=== PATIENT | female | born 1960 | race Caucasian/White ===

== ENCOUNTER 2021-10-13 12:55 | Outpatient (CLI) | payer BC, SELFPAY ==
--- NOTE | 2021-10-13 13:00 | CRLHL7_ITS ---
For Patients: As a result of the Century Cures Act, medical imaging exams and procedure reports are released immediately into your electronic medical record. You may view this report before your referring provider. If you have questions, please contact your health care provider. DXA BONE MINERAL DENSITY STUDY Current height (in): 63. Weight (lb): 140. Menopause age: 48. Ethnicity: White. 1. Have you had a previous hip or vertebral fracture? No. 2. Have you had any fractures during your adult life which did not result from significant trauma (e.g., auto accident)? No. 3. Did either of your parents have a hip fracture? Yes. 4. Do you smoke? Yes. 5. Have you ever taken Glucocorticoids? No. 6. Do you have rheumatoid arthritis? No. 7. Do you have secondary osteoporosis? No. 8. Do you drink 3 or more alcoholic drinks per day? No. 9. Are you being treated for osteoporosis? No. 10. Have you ever taken any of the following medications: Actonel, Evista, Fosamax, Miacalcin, Reclast, Boniva, Forteo, HRT (i.e. estrogen/hormone therapy), Protelos, Prolia, Vitamin D, Calcium, other ??? please specify. ANSWER: Yes, vitamin D, calcium. 11. Do you have any of the following medical conditions: Anorexia or bulimia, asthma or emphysema, end stage renal disease, hyperparathyroidism, any seizure disorders, cancer, inflammatory bowel diseases, hysterectomy, other ??? please specify. ANSWER: Yes, cancer. 12. What was your maximum height (inches)? 64. 13. Do you perform weight bearing exercise regularly? No. 14. Do you regularly consume dairy products? Yes. 15. Do you drink caffeinated beverages? Yes. 16. At what age did your period start? 14. 17. Are you premenopausal? No. 18. How many full term pregnancies have you had? 2. 19. Have you ever missed your period for more than 6 months in a row (not including or menopause)? No. TECHNIQUE: Bone mineral density study was performed using the [employer] FINDINGS: The results of the study expressed as bone mineral density (BMD) are as follows: Lumbar spine L1 to L4: BMD: 0.957 g/cm2. T-score: -0.8. Z-score: 0.5. Neck Left: BMD: 0.667 g/cm2. T-score: -1.6. Z-score: -0.4. Right: BMD: 0.727 g/cm2. T-score: -1.1. Z-score: 0.1. Total Left: BMD: 0.867 g/cm2. T-score: -0.6. Z-score: 0.3. Right: BMD: 0.862 g/cm2. T-score: -0.7. Z-score: 0.2. IMPRESSION: Osteopenia. FRAX 10-year Fracture Risk Major Osteoporotic Fracture: 16 percent Hip Fracture: 1.3 percent Reported Risk Factors: [place] () Neck BMD = 0.667, BMI = 24.8, parental fracture Ridge Burks M.D. Diagnostic Radiologist [email or web address]/Dictated by: Ridge Burks MD @ 10/13/2021 2:02:00 PM (Electronically Signed)
== END 2021-10-13 12:56 | disposition home or self-care (01) ==
PROVIDERS: PCP Physician Assistant Medical; Visit Provider Internal Medicine Hematology & Oncology
DX: C50.912 Malignant neoplasm of unspecified site of left female breast (principal); Z78.0 Asymptomatic menopausal state; Z79.811 Long term (current) use of aromatase inhibitors; Z79.899 Other long term (current) drug therapy
CPT/HCPCS: 77080

== ENCOUNTER 2022-06-30 15:00 | Outpatient (RCR) | payer BC, SELFPAY ==
--- NOTE | 2022-07-13 14:20 | ONC.NURNOTE ---
Addendum entered by Luz Humphries 07/20/22 13:43: Message left today requesting return call to [facility] to discuss follow up appointment. Original Note: Received refill request for patients calcium with vitamin D. She was seen 02/18/2022, and was due in May. Her appointment for 06/2022 was cancelled, and so message left with patient to call office back to schedule. Refill request left for Dr. Altamirano when she is in the office tomorrow.
== END 2022-08-17 23:59 | disposition home or self-care (01) ==
LOC: CCIC 15:00
PROVIDERS: PCP Physician Assistant Medical; Visit Provider Nurse Practitioner Family
DX: C50.911 Malignant neoplasm of unspecified site of right female breast (principal)
CPT/HCPCS: 99212; 99214

== ENCOUNTER 2022-11-10 13:38 | Outpatient (RCR) | payer BC, SELFPAY ==
--- NOTE | 2022-11-22 11:39 | ONC.NURNOTE ---
Addendum entered by Jessie Shaw RN 12/08/22 08:09: Vicenta aware, would like pt to be seen in 3 months, pt scheduled. Original Note: Called pt to let her know [facility] Parry reviewed her diagnostic mammogram, and is recommending an MRI for further investigation. Pt is declining further workup at this time. Pt would like to discuss at her next follow up appt and will call [facility] if she has any concerns.
--- NOTE | 2023-01-16 14:58 | ONC.NURNOTE ---
patient phoned [facility] on 01/13 to cancel Feb follow up appt for breast cancer patient did not want to reschedule and did not share reason for canceling [facility] notified
== END 2023-05-09 23:59 | disposition home or self-care (01) ==
LOC: CCIC 13:38
PROVIDERS: PCP Physician Assistant Medical; Visit Provider Physician Assistant
DX: C50.911 Malignant neoplasm of unspecified site of right female breast (principal); Z17.0 Estrogen receptor positive status [ER+]; Z79.811 Long term (current) use of aromatase inhibitors; M85.80 Other specified disorders of bone density and structure, unspecified site; N63.20 Unspecified lump in the left breast, unspecified quadrant; L30.9 Dermatitis, unspecified
CPT/HCPCS: 99212; 99214; 99215

== ENCOUNTER 2022-11-17 08:50 | Outpatient (CLI) | payer BC, SELFPAY ==
--- NOTE | 2022-11-17 | CRLHL7_ITS ---
For Patients: As a result of the Cures Act, medical imaging exams and procedure reports are released immediately into your electronic medical record. You may view this report before your referring provider. If you have questions, please contact your health care provider. DIGITAL DIAGNOSTIC BILATERAL MAMMOGRAM USING TOMOSYNTHESIS AND COMPUTER-AIDED DETECTION LEFT BREAST ULTRASOUND CLINICAL HISTORY: LEFT breast lump. COMPARISON: 03/28/2022, 12/17/2021, 04/27/2021, 01/10/2017. TECHNIQUE: Digital BILATERAL mammogram in four projections. Tomosynthesis and CAD utilized. Real-time ultrasound imaging of LEFT breast with imaging documentation. BREAST COMPOSITION: The breasts are heterogeneously dense, which may obscure small masses. FINDINGS: 3D CC/MLO BILATERAL mammogram images submitted. Benign calcifications are present bilaterally. No suspicious masses, architectural distortion or adenopathy. Post lumpectomy changes RIGHT breast. Targeted LEFT breast ultrasound performed in the area of concern 2-5 o`clock 2 cm from the nipple. Normal dense breast tissue is present. No fibrocystic change, abscess or mass. IMPRESSION: No evidence of malignancy. RECOMMENDATIONS: Clinical follow-up and routine screening mammography. Results and recommendations discussed with the patient. BI-RADS Category 2: Benign A lay language report of this examination will be provided to the patient. Dictated by Ridge Burks MD @ 11/17/2022 10:32:04 AM /Dictated by: Ridge Burks MD @ 11/17/2022 10:32:00 AM (Electronically Signed)
--- NOTE | 2022-11-17 09:15 | CRLHL7_ITS ---
For Patients: As a result of the Cures Act, medical imaging exams and procedure reports are released immediately into your electronic medical record. You may view this report before your referring provider. If you have questions, please contact your health care provider. PLEASE SEE DIGITAL DIAGNOSTIC BILATERAL MAMMOGRAM PERFORMED SAME DAY CRL:heather romero/Dictated by: Ridge Burks MD @ 11/17/2022 10:32:00 AM (Electronically Signed)
== END 2022-11-17 08:51 | disposition home or self-care (01) ==
LOC: US 08:50
PROVIDERS: PCP Physician Assistant Medical; Visit Provider Physician Assistant
DX: N63.20 Unspecified lump in the left breast, unspecified quadrant (principal); R92.2 Inconclusive mammogram
CPT/HCPCS: 76642; 77066; G0279

== ENCOUNTER 2023-01-25 19:54 | Emergency (ER) | payer BC, SELFPAY ==
[2023-01-25 20:17] VITALS: BP 155/88; PULSE 75; RESP 16; TEMP 36.6; O2SAT 96; BMI 23.0
--- NOTE | 2023-01-25 20:18 | ED_ITS ---
HPI - General Adult General Date Seen: 01/25/23 Chief complaint: Neuro Symptoms/Altered Deficit Stated complaint: headache, forgetfulness Time Seen by Provider: 01/25/23 20:11 History of Present Illness HPI narrative: 62-year-old female presenting to the ER today with her for evaluation of headache and other symptoms. She has a past medical history notable for previous breast cancer (treated a couple of years ago), and a recent diagnosis of a new lung mass and lung cancer. She has been working with an oncologist, Dr. Aguila, through the [facility] in [place] for her new lung tumor. Precise details are not available to me at this time but it sounds like she has had an outpatient workup over the recent weeks including lung biopsy which proved cancer as well as a PET scan that did not show any metastasis to her torso. She is a smoker but has been cutting back from 2 and half packs per day down to 1 pack per day. Her primary concern is headache. She has had a headache for the past few months. Has been getting steadily worse. She does know what brought it on. No history of head trauma. She is not anticoagulated. In the previous past she has had trouble with sinus headaches. She did have some fevers a couple of weeks ago and was put on a course of Augmentin for possible sinus infection, but that did not improve her headache. For the past 3 or 4 weeks or headaches been getting progressively worse. It tends to be worse in the morning. It is generally manageable with Tylenol. Also her notes over the past 3 or 4 weeks she has been a bit more confused than normal and having trouble walking. Lately she has been having to hold onto him or old on the object keep her balance. She seems to be having trouble moving her left leg intense to list and lean to the left. For the past few days the headache has been much more intense and severe in the morning. She has been waking up with bad headache and vomiting. No recent head trauma. No fever. No neck pain. No numbness or weakness in her arms. No slurred speech. She has been through an outpatient workup for her lung cancer with her oncologist. They apparently tried order an outpatient MRI. She is very claustrophobic so cannot tolerate normal MRI scans because of the tube. She was supposed to have had a special open MRI done at an imaging facility in [facility] today. However when she got there it turns out it was a normal MRI. She could not tolerate the imaging so they had to leave without pictures. She and her decided to come here to the [facility] because they were concerned about the progressing headache. Her they feel like she needs some workup to be done urgently. Overall her headache is only 2-3/10 at this time. She had taken Tylenol prior to coming in and feels like the headaches under control. She is not confused. She is not nauseous and vomiting currently. She still does have trouble walking. From Oncology visit, Ary Parry, 11/2022 Oncology Hx: 03/10/2021 Mammogram bilateral screening consistent with right breast asymmetry/mass. BI-RADS category 0. 03/18/2021 MRI had done for episode of dizziness/nausea IMPRESSION: 1. No acute infarction, mass effect, or intracranial hemorrhage. 2. Few punctate T2 FLAIR hyperintensities in the supratentorial white matter are nonspecific, though typical for sequelae of minimal chronic microvascular ischemic changes or migraine headaches. 03/23/2021 mammogram right breast consistent with 10 into 7 into 9 mm spiculated mass in the right breast at 6:00 position. Ultrasound-guided core biopsy. BI- RADS category 4. 03/30/21 Final Diagnosis A) RIGHT BREAST, 6:00, 6 CM FROM NIPPLE, ULTRASOUND-GUIDED CORE BIOPSY: 1. Invasive lobular carcinoma ? ?a. Tati grade: I of III; Tati score: 4 of 9 ? ?b. Angio-lymphatic invasion: Absent ? ?c. Associated LCIS: Absent 2. Breast Ancillary Testing: ? ? ? a. Hormone Receptors: ? Estrogen receptor: Positive (99%, strong staining) ? Progesterone receptor: Positive (98%, strong staining) ? ? b. HER2 by IHC: Negative (1+ by manual morphometry) ? c. Ki-67: 8% Amendment electronically signed by Yenni Casillas MD on 04/08/2021 MRI breast bilateral consistent with: Biopsy-proven invasive lobular carcinoma at 6:00 a.m. position in the right breast measuring up to 1.1 cm on MRI. No MRI evidence of malignancy left breast. No morphologically abnormal lymph nodes. BI-RADS category 6. 04/21/2021 ultrasound axilla right consistent with normal right axillary lymph nodes BI-RADS category 6 with known malignancy 04/27/2021 Final Diagnosis A) RIGHT BREAST, WIRE-LOCALIZED LUMPECTOMY: 1. Invasive lobular carcinoma, [place] grade II of III ? ? a. Size: 13 mm ? ? b. Core biopsy site is associated with tumor 2. 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 Margins: ? ? a. Invasive carcinoma involves the inferior margin and is 1 mm from the anterior margin ? ? b. Florid LCIS is less than 1 mm from the medial and superior margins ? ? c. See part C for final inferior margin status 4. Breast Ancillary Testing: Performed on prior case ([id number]) ? ? a. Hormone Receptors: ? Estrogen receptor: Positive (99%, strong staining) ? Progesterone receptor: Positive (98%, strong staining) ? ? b. HER2 by IHC: Negative (1+ by manual morphometry) ? c. Ki-67: 8% B) RIGHT AXILLARY SENTINEL LYMPH NODE #1, EXCISION: 1. Negative for metastatic malignancy in one lymph node (0/1) C) RIGHT BREAST, NEW INFERIOR MARGIN, EXCISION: 1. Benign breast tissue 2. Negative for atypia and malignancy (margin negative) at 1220 05/11/2021: Comes in for medical oncology consultation at [facility]; Oncotype DX recurrence score is discussed and ordered. 06/15/2021 Oncotype DX recurrence score result is at 13, distant recurrence risk at 9 years with aromatase inhibitor and tamoxifen alone is at 4%, group average absolute chemotherapy benefit is less than 1%. 06/03/2021-06/15/2021 underwent radiation treatment (dates are approximate as I am was not able to open documentation in EMR.) Related Data Home Medications Medication Instructions Recorded Confirmed calcium carbonate 600 mg-vitamin 1 tab PO QDAY 02/18/22 11/10/22 D3 10 mcg (400 unit) tablet lisinopril 20 mg tablet 20 mg PO QDAY 02/18/22 11/10/22 magnesium oxide 400 mg PO QDAY 02/18/22 11/10/22 multivitamin 1 tab PO QAM 02/18/22 11/10/22 atenolol 50 mg tablet 50 mg PO QDAY 11/10/22 11/10/22 Previous Rx's Medication Instructions Recorded anastrozole 1 mg tablet 1 mg PO QDAY breast cancer #90 tabs 11/10/22 triamcinolone acetonide 0.1 % 1 applic topical BID #30 grams 11/10/22 topical cream Allergies Allergy/AdvReac Type Severity Reaction Status Date / Time flonase AdvReac Mild Rash Uncoded [facility] 08[facility] Medical History (Updated 01/26/23 @ 00:44 by Kyle Logan MD) Lobular carcinoma in situ (LCIS) of right breast ?D05.01 - Lobular carcinoma in situ of right breast (ICD-10) HTN (hypertension) ?I10 - Essential (primary) hypertension (ICD-10) Tobacco use ?Z72.0 - Tobacco use (ICD-10) Invasive lobular carcinoma of breast in female ?C50.919 - Malignant neoplasm of unspecified site of unspecified female breast (ICD-10) Surgical History (Updated 02/09/22 @ 10:37 by Michelle Patel, NISA) Status post vein stripping ?Z98.890 - Other specified postprocedural states (ICD-10) Hx of section ?Z98.891 - History of uterine scar from previous surgery (ICD-10) S/P appy ?Z90.49 - Acquired absence of other specified parts of digestive tract (ICD- 10) Status post right breast lumpectomy (~04/27/21) ?Z98.890 - Other specified postprocedural states (ICD-10) S/P radiation therapy (~05/2021) ?Z92.3 - Personal history of irradiation (ICD-10) Social History Smoking Status: Current every day smoker Non-prescribed substance use: denies use Exam Narrative: Exam Narrative: Constitutional: Appears well-developed and well-nourished. Alert. Conversant. Non toxic. HENT: Head: Atraumatic. No depressed skull fracture, Raccoon Eyes, Machado's sign, or hemotympanum. Face normal. TMs normal Nose: Nose normal. Mouth/Throat: Oral mucosa is clear and moist. no trismus. Pharynx normal. Tonsils symmetric. No tonsillar enlargement, erythema, or exudate. Palate elevates symmetrically and tongue protrudes in the midline. Eyes: Conjunctivae normal. EOM normal. Pupils equal, round, and reactive to ligh t. No scleral icterus. Neck: Normal range of motion. Neck supple. No tracheal deviation present. Cardiovascular: Normal rate, regular rhythm. No gallop. No friction rub. No murmur heard. Symmetric radial artery pulses Pulmonary/Chest: Effort normal. No stridor. No respiratory distress. No wheezes. No rales. No rhonchi . No tenderness. Abdominal: Soft. Bowel sounds normal. No distension. No mass. No tenderness. No rebound. No guarding. Musculoskeletal: RUE: Normal range of motion. No tenderness. No deformity LUE: Normal range of motion. No tenderness. No deformity RLE: Normal range of motion. No edema. No tenderness. No deformity LLE: Normal range of motion. No edema. No tenderness. No deformity Lymph: No cervical adenopathy. Neurological: Mental status normal. Attention normal. Alert and oriented x3. GCS 15. Memory normal. Speech fluent. Cognition normal. She is a poor historian and somewhat non chronological, but does not seem confused. Cranial Nerves intact II-XII except I did not formally test gag or visual acuity. EOMI. Palate elevates symmetrically and tongue protrudes in the midline. Strength: 5/5 trapezius on the right and left 5/5 deltoid on the right and left 5/5 biceps on the right and left 5/5 triceps on the right and left 5/5 shellfish farming supervisor on the right and left 5/5 thumb opposition on the right and le ft 5/5 finger abduction on the right and le ft 5/5 hip flexors (L3) on the right and le ft 5/5 quadriceps (L4) on the right and lef t. She has subjective weakness of the left quad but is able to lift strongly against my hand. Perhaps subtly weaker than on the right. 5/5 tibialis anterior on the right and l eft. She has subjective weakness of ankle dorsiflexion on the left. 5/5 EHL (L5) on the right and left 5/5 gastrocnemius (S1) on the right and left 5/5 hamstring on the right and left Sensation intact to light touch in both upper extremities (C4-T1) Sensation intact to light touch in Both lower extremities (L4-S1). Finger to nose and coordination normal. Romberg normal. She does have gait abnormality. She swings her left leg out into the side when she walks. She lists slowly to left but she is able to ambulate under her own power in the hallway. Skin: Skin is warm and dry. No rash noted. No pallor. Normal capillary refill. Psychiatric: Normal mood. Normal affect. Const: Vital Signs, click to edit/add: Vital Signs - 24 hr 01/25/23 20:17 01/26/23 00:48 01/26/23 06:01 Temperature 97.8 F 97.6 F Pulse Rate [Pulse Oximeter] 75 72 74 Respiratory Rate 16 16 16 Blood Pressure [Ri ght Upper Arm] 155/88 H 144/92 H 132/88 Pulse Oximetry 96 93 94 Oxygen Delivery Me thod Room Air Room Air Room Air Course Course ED Course: Based on the patient's initial presentation we were concerned about possible intracranial abnormality such as tumor or metastasis. Discussed with the patient and her that MRI would be the most sensitive imaging study. Unfortunately MRI is not available to me at this hour here in the ER in [place] and our MRI would be a closed tube. Therefore we elected to go ahead with CT scan. I ordered with and without contrast to have better sensitivity for mass or cerebral edema. Laboratory workup shows normal kidney function, normal electrolytes save for mild hypokalemia with potassium of 3.5. CBC shows a white count of 13. She does not currently have any infection symptoms so doubt meningitis or sepsis. Recheck-I was called to the CT scanner when the patient was being imaged. She does have what appears to be a right cerebellar mass with some surrounding edema. No definite hemorrhage. No definite midline shift. No definite associated hydrocephalus on my read. Will obtain CT head with contrast for further evaluation. Await Radiology read. Recheck-Radiology read delayed. Nurses are calling to ask about the delay to make sure images of med transmitted. Recheck-I called Radiology myself. I was able to speak with the radiologist. She read the patient's CT scan confirms that there is a 2 x 2 x 2 cm right cerebellar mass with surrounding edema. It does affect the 4th ventricle but does not obstructed. No definite hydrocephalus or midline shift. I updated the patient and her about the findings. Decadron 10 mg IV ordered Discussed with oncology through [facility]. Discussed with neurosurgery from [facility]> Dr. Bella Soni. He agrees with initiation of Decadron and recommends Decadron 6 mg IV q.6 hours. He also would agree with the plan to have the patient transferred up to [facility]. She needs an MRI of her brain with and without contrast. Likely would then need neurosurgery consultation and radiation oncology consultation. Likely would be a candidate for radiation therapy to shrink the tumor. At this point, there are no open beds at [facility]. She is placed on to the wait list. No clear time for a bed to become available but anticipate they would possibly be a bed during the day on 8-16 hours from now (currently midnight on Monday). At this point no need for emergent transfer since there was not any obstruction of the 4th ventricle, hydrocephalus,. If the patient worsens she would need more expeditious transfer. Updated patient and her . Patient wants to go home. encouraged her to stay and get treatment. Ultimately she would want treatment for this tumor. At this point she is not really entertaining palliative care or hospice. She agrees to stay. Update. Patient having nicotine cravings. Declines nicotine patch. Would accept nicotine gum. Reevaluation(s) Reevaluation #1: Recheck-6:44 a.m.. Stable. Reevaluation #2: Signed out to my partner Dr. Sandra at its 8:00 a.m. Vital Signs Vital signs: Initial Vital Signs Temperature 97.8 F 01/25/23 20:17 Temperature Source Temporal Artery Scan 01/25/23 20:17 Pulse Rate 75 01/25/23 20:17 Pulse Rhythm Regular 01/25/23 20:17 Respiratory Rate 16 01/25/23 20:17 Blood Pressure 155/88 H 01/25/23 20:17 Blood Pressure Mean 110 H 01/25/23 20:17 Blood Pressure Position Sitting 01/25/23 20:17 Pulse Oximetry 96 01/25/23 20:17 Oxygen Delivery Method Room Air 01/25/23 20:17 Vital Signs Temperature 97.8 F 01/25/23 20:17 Pulse Rate 75 01/25/23 20:17 Respiratory Rate 16 01/25/23 20:17 Blood Pressure 155/88 H 01/25/23 20:17 Pulse Oximetry 96 01/25/23 20:17 Oxygen Delivery Method Room Air 01/25/23 20:17 Temperature 97.6 F 01/26/23 06:01 Pulse Rate 74 01/26/23 06:01 Respiratory Rate 16 01/26/23 06:01 Blood Pressure 132/88 01/26/23 06:01 Pulse Oximetry 94 01/26/23 06:01 Oxygen Delivery Method Room Air 01/26/23 06:01 Medications Administered Medications: Generic Name Dose Route Start Last Admin Trade Name Freq PRN Reason Stop Dose Admin Nicotine Polacrilex 2 mg 01/26/23 01:21 01/26/23 01:53 Nicotine 2 Mg Gum BUCCAL 2 mg Q1H PRN Administration Discontinued Medications Generic Name Dose Route Start Last Admin Trade Name Freq PRN Reason Stop Dose Admin Dexamethasone 10 mg 01/25/23 23:13 01/26/23 00:01 Dexamethasone 4 Mg/Ml Vial IV 01/25/23 23:14 10 mg ONCE ONE Administration Dexamethasone 6 mg 01/26/23 06:00 01/26/23 05:54 Dexamethasone 4 Mg/Ml Vial IV 01/26/23 06:01 6 mg QID ONE Administration Medical Decision Making [facility] Narrative Medical decision making narrative: 62-year-old female with a recent diagnosis of lung cancer presents to the ER today with a couple month history of progressively worsening headache, leading to a couple of weeks of intermittent confusion and some ataxia, now leading to a couple of days of more severe postural headache (worse with supine) and morning vomiting. Presentation concerning for possible expanding intracerebral mass. Head CT scan with and without contrast were obtained and are unfortunately confirming a right cerebellar mass with associated edema. This would fit with the patient's HPI as well as her neurologic deficits with ataxia affecting her left leg. With the edema there is some mass effect on the 4th ventricle but no signs of midline shift or impending herniation. She was started on IV Decadron here in the ER. Oncology and neurosurgery consulted. The plan will be to get her transferred to [facility] (tertiary care) for Neurosurgery, Oncology, Radiation Oncology consult to figure out a plan of care. Likely would require radiation therapy discharge drinking the tumor prior to initiation of chemotherapy. She was supposed to have had an outpatient visit with her oncologist in [place] on . This will have to be delayed for her inpatient care. She is currently on the wait list for the [facility], awaiting a bed at [facility]. At this time her pain is controlled. She has ataxia and ongoing mild headache, but GCS is 15, speech is fluent, mentation is normal. Lab Data Labs: Lab Results 01/25/23 Range/Units 21:00 WBC 13.29 H (4.50-11.00) K/uL RBC 4.03 (4.00-5.20) m/uL Hgb 11.7 L (12.0-16.0) gm/dL Hct 36.3 (33.0-51.0) % MCV 90 (80-100) fL MCH 29 (26-34) pg MCHC 32 (32-36) gm/dL RDW Coeff of Tata 13.3 (11.5-15.5) % Plt Count 431 (140-440) K/uL Neut % (Auto) 53.6 (42.0-72.0) % Lymph % (Auto) 22.0 (20-44) % Rhea % (Auto) 8.4 (0.0-11.0) % Eos % (Auto) 15.3 H (0.0-7.0) % Baso % (Auto) 0.5 (0.0-3.0) % Neut # (Auto) 7.10 H (1.7-7.0) K/uL Lymph # (Auto) 2.90 (0.90-2.90) K/uL Rhea # (Auto) 1.10 H (0.00-0.90) K/UL Eos # (Auto) 2.00 H (0.00-0.50) K/uL Baso # (Auto) 0.10 (0.00-0.30) K/uL Abs Immat Gran (auto) 0.00 (0.00-0.30) K/uL Imm/Tot Granulo (auto) 0.2 % Sodium 136 (135-149) mmol/L Potassium 3.5 L (3.6-5.1) mmol/L Chloride 101 (96-114) mmol/L Carbon Dioxide 27 (20-32) mmol/L Anion Gap 8 (7-15) mEq/L BUN 13 (7-30) mg/dL Creatinine 0.5 (0.5-1.5) mg/dL Estimated Creat Clear 98.98 Estimated GFR 107 ml/min Glucose 103 (60-115) mg/dL Calcium 8.7 (8.4-10.6) mg/dL Discharge Plan Discharge Clinical Impression: Cerebellar mass, Ataxia, Headache Patient Disposition: [facility] Prescriptions: No Action atenolol 50 mg tablet 50 mg PO QDAY triamcinolone acetonide 0.1 % cream 1 applic topical BID Qty: 30 0RF Rx Instructions: Apply to affected area twice daily for up to two weeks. anastrozole 1 mg tablet 1 mg PO QDAY Qty: 90 3RF lisinopril 20 mg tablet 20 mg PO QDAY Patient Comments: TAKE 1 TABLET BY MOUTH EVERY DAY calcium carbonate-vitamin D3 600 mg-10 mcg (400 unit) tablet 1 tab PO QDAY Patient Comments: TAKE 1 TABLET BY MOUTH TWICE A DAY WITH MEALS multivitamin Tablet 1 tab PO QAM magnesium oxide 400 mg magnesium capsule 400 mg PO QDAY Stand Alone Forms: [facility] Info Instructions
--- NOTE | 2023-01-25 20:47 | CRLHL7_ITS ---
For Patients: As a result of the Century Cures Act, medical imaging exams and procedure reports are released immediately into your electronic medical record. You may view this report before your referring provider. If you have questions, please contact your health care provider. INDICATION: History of lung cancer, nausea, vomiting, headache, ataxia in the left leg TECHNIQUE: CT head without and with 95 cc Isovue 370 contrast. COMPARISON: None FINDINGS: CSF spaces: Within normal limits for age. Brain parenchyma: The redd-white differentiation is normal. Noncontrast images demonstrate ill-defined hypodensity in the right cerebellum. IV contrast-enhanced images demonstrate a thick-walled hypodense rim enhancing lesion in the right cerebellum measuring 2.3 x 2.2 x 2.3 cm. There is mass effect the 4th ventricle although the ventricle remains patent. Hypodensity in the right cerebellum represents edema surrounding the enhancing mass. Skull base and calvarium: The visualized paranasal sinuses and mastoid air cells demonstrate no acute or significant findings. The visualized orbits are grossly unremarkable. No skull fractures. IMPRESSION: Thick-walled enhancing lesion on the right cerebellum with surrounding edema and mass effect on the 4th ventricle, likely representing metastatic disease. Findings discussed with Dr. Logan and 11:15 p.m. on January 25, 2023. Please note that all CT scans at this facility use dose modulation, iterative reconstruction, and/or weight-based dosing when appropriate to reduce radiation dose to as low as reasonably achievable. Dictated by Bibiana Martinez MD @ 01/25/2023 11:16:16 PM (Electronically Signed)
[2023-01-25 21:07] LABS: Basophils Percent Auto 0.5 % (0.0-3.0); Eosinophils Percent Auto 15.3 % (0.0-7.0); Hematocrit 36.3 % (33.0-51.0); Hemoglobin* 11.7 gm/dL (12.0-16.0); Immature Granulocytes Pct Auto 0.2 %; Mean Corpuscular HGB Conc 32 gm/dL (32-36); Mean Corpuscular Hemoglobin 29 pg (26-34); Mean Corpuscular Volume 90 fL (80-100); Monocytes Percent Auto 8.4 % (0.0-11.0); Neutrophils Percent Auto 53.6 % (42.0-72.0); Platelet Count* 431 K/uL (140-440); RDW Coefficient of Variation % 13.3 % (11.5-15.5); Red Blood Count 4.03 m/uL (4.00-5.20); White Blood Count* 13.29 K/uL (4.50-11.00)
[2023-01-25 21:12] LABS: Slide Review Reflex No
[2023-01-25 21:20] LABS: Chloride* 101 mmol/L (96-114); Potassium* 3.5 mmol/L (3.6-5.1); Sodium* 136 mmol/L (135-149)
[2023-01-25 21:23] LABS: Anion Gap 8 mEq/L (7-15); Blood Urea Nitrogen* 13 mg/dL (7-30); Carbon Dioxide* 27 mmol/L (20-32); Creatinine* 0.5 mg/dL (0.5-1.5); Est. Creatinine Clearance* 98.98; Estimated Glomerular Filt Rate 107 ml/min; Glucose* 103 mg/dL (60-115)
[2023-01-25 21:24] LABS: Calcium* 8.7 mg/dL (8.4-10.6)
[2023-01-26] MEDS: dexAMETHasone 4 MG/ML VIAL 10 MG IV (00:01)
[2023-01-26 00:48] VITALS: BP 144/92; PULSE 72; RESP 16; O2SAT 93
[2023-01-26] MEDS: NICOTINE 2 MG GUM BUCCAL (01:53)
--- NOTE | 2023-01-26 01:53 | PC.NURSE ---
patients daughter in room
[2023-01-26] MEDS: dexAMETHasone 4 MG/ML VIAL 6 MG IV ×2 (05:54→11:55)
[2023-01-26 06:01] VITALS: BP 132/88; PULSE 74; RESP 16; TEMP 36.4; O2SAT 94
[2023-01-26 10:15] VITALS: BP 128/84; PULSE 88; RESP 16; TEMP 36.4; O2SAT 93
--- NOTE | 2023-01-26 10:56 | PC.NURSE ---
report given to ED charge nurse at [facility] regarding patients transfer.
== END 2023-01-26 12:30 | disposition short-term general hospital (02) ==
PROVIDERS: Emergency Medicine; Emergency Provider Family Medicine; PCP Physician Assistant Medical
DX: G93.9 Disorder of brain, unspecified (principal); R51.9 Headache, unspecified; R27.0 Ataxia, unspecified
CPT/HCPCS: 36415; 70470; 80048; 85025; 96374; 96376; 99285; J1100; Q9967

== ENCOUNTER 2023-01-26 12:25 | Outpatient (CLI) | payer BC, SELFPAY | END 2023-01-26 12:26 | disposition home or self-care (01) | LOC: AMB 02-02 16:50 | PROVIDERS: PCP Physician Assistant Medical; Visit Provider Emergency Medicine | DX: G93.89 Other specified disorders of brain (principal); R27.0 Ataxia, unspecified | CPT/HCPCS: A0425; A0428 ==

== ENCOUNTER 2023-04-11 08:16 | Inpatient (IN) | payer BC, SELFPAY ==
--- NOTE | 2023-04-11 08:20 | ED_ITS ---
HPI - General Adult General Date Seen: 04/11/23 Chief complaint: Allergic Reaction Stated complaint: rash,sore throat,some trouble breathing Time Seen by Provider: 04/11/23 08:20 History of Present Illness HPI narrative: 62-year-old female with a history of breast cancer(on anastrozole), lung mass and probable lung cancer), cerebellar mass noted on CT 3 months ago in January, hypertension (on lisinopril, atenolol), previous sinus infections, presenting to the ER today with sore throat, rash, and some trouble breathing. She has a complex recent past history. I saw her in January for ataxia and headache and we discovered a cerebellar mass on her head CT. During that visit which she was transferred to [facility] because there were no beds at other neuro surgical Hospitals closer to home. She underwent resection of the brain tumor. She was discharged from [facility]. She developed an infection around the surgery site and was rehospitalized at [facility] on March 20. She had a washout of her incision and removal of some infected bone from her skull. She was put on a course of intravenous vancomycin (twice daily for 8 weeks through her port). She noted lingering drainage from the incision for a couple of weeks and then followed up with her doctor last week for suture removal. Because of the lingering drainage she was sent to the ER at [facility]. She was admitted there, taken back to the OR for 2nd washout, and had broadening of her antibiotic coverage to treat the infection. She is now on vancomycin and a 2nd antibiotic to cover g negatives (see does not know the name of the 2nd antibiotic- my evaluationn of medical record through [facility] indicates Cefipime 1g IV Q8HR x 28 days). While in the hospital she began to develop an erythematous pruritic non raised rash. It is fairly widespread on her body. It started before she started the 2nd antibiotic, while she was still only on vanco. Rash was treated with Benadryl. She was discharged home 3 days ago, on Monday. Since discharge she has had ongoing rash and if anything it is getting worse. She also has been running fever and had a temperature up to 103 yesterday. Interestingly, even when she had her infection in her surgery site, with redness and purulent drainage from the incision she did not have a fever. She has also had sore throat and has noted white spots on her tongue and in her pharynx. She has pain with swallowing. She has been taking Benadryl. She called her Infectious Disease team through [facility] and was changed from vancomycin to a different antibiotic yesterday. Last dose of vancomycin was yesterday morning. She was prescribed linezolid and she had her 1st dose of that yesterday evening. She still on the 2nd antibiotic for g negatives. This morning she feels like the rash is even more itchy and she is still having sore throat so she came here to the ER in [place]. She has a mild cough but it is chronic. She quit smoking in January when I admitted her for the cerebellar mass. No shortness of breath. No nausea or vomiting. No diarrhea. Urination normal. Also of note her granddaughter, who visit her in the hospital, is home sick today from school with a fever. No known specific infection for granddaughter. Records from ID through [facility] Epic Patient diagnosed with lung cancer in December 2022. Was planned for neoadjuvant chemoimmunotherapy. MRI brain on 01/26/2023 showed 2.5 cm intra- axial mass within the right cerebellar hemisphere with vasogenic edema and mass effect on the fourth ventricle with some cerebellar tonsillar herniation. Patient was started on dexamethasone. 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 Admitted to the hospital on 03/20/2023 for postoperative wound infection. She was taken to surgery with Dr. Marcos for irrigation and debridement as well as removal of her bone flap. IntraOp cultures grew Staph epidermidis and she was followed by infectious disease and placed vancomycin. ? She was seen by her PCP on day of admission for suture removal, noted an open channel to the incision with drainage after scab and debris removal. Patient was sent to the ED for further evaluation. Has mild headache. Denies fevers, chills, nausea or vomiting. No vision change. No focal neurological deficits. ? In the ED, stable vital signs; afebrile. Labs noted for normal WBC, and chronic anemia. CRP 3.8. Seen by neurosurgery who recommended repeat I&D. Patient admitted for further evaluation and treatment. She had surgery 04/05 and went well. ID following and managed Abx. Patient stable and discharged to home in stable condition on 04/06 Body fluid culture and Tissue culture from 04/05 grew Pseudomonas aeruginosa, sensitive to cefepime, ceftazidime, Cipro, level floxacillin, meropenem, Zosyn, tobramycin. Related Data Home Medications Medication Instructions Recorded Confirmed calcium carbonate 600 mg-vitamin 1 tab PO QDAY 02/18/22 11/10/22 D3 10 mcg (400 unit) tablet lisinopril 20 mg tablet 20 mg PO QDAY 02/18/22 11/10/22 magnesium oxide 400 mg PO QDAY 02/18/22 11/10/22 multivitamin 1 tab PO QAM 02/18/22 11/10/22 atenolol 50 mg tablet 50 mg PO QDAY 11/10/22 11/10/22 Previous Rx's Medication Instructions Recorded anastrozole 1 mg tablet 1 mg PO QDAY breast cancer #90 tabs 11/10/22 triamcinolone acetonide 0.1 % 1 applic topical BID #30 grams 11/10/22 topical cream Allergies Allergy/AdvReac Type Severity Reaction Status Date / Time vancomycin Allergy Severe DRESS Verified 04/11/23 11:13 syndrome flonase AdvReac Mild Rash Uncoded 02/18/22 08:37 [facility] Medical History (Updated 04/11/23 @ 11:38 by Kyle Logan MD) Lobular carcinoma in situ (LCIS) of right breast ?D05.01 - Lobular carcinoma in situ of right breast (ICD-10) HTN (hypertension) ?I10 - Essential (primary) hypertension (ICD-10) Tobacco use ?Z72.0 - Tobacco use (ICD-10) Invasive lobular carcinoma of breast in female ?C50.919 - Malignant neoplasm of unspecified site of unspecified female breast (ICD-10) Surgical History (Updated 02/09/22 @ 10:37 by Michelle Patel APRN) Status post vein stripping ?Z98.890 - Other specified postprocedural states (ICD-10) Hx of section ?Z98.891 - History of uterine scar from previous surgery (ICD-10) S/P appy ?Z90.49 - Acquired absence of other specified parts of digestive tract (ICD- 10) Status post right breast lumpectomy (~04/27/21) ?Z98.890 - Other specified postprocedural states (ICD-10) S/P radiation therapy (~05/2021) ?Z92.3 - Personal history of irradiation (ICD-10) Social History Smoking Status: Current every day smoker What tobacco products do you use: cigarettes Do you use any of these nicotine containing products: None Second hand tobacco smoke exposure: No How often do you have a drink containing alcohol: never AUDIT-C Alcohol total score: 0 Non-prescribed substance use: denies use Exam Narrative: Exam Narrative: Constitutional: Appears well-developed and well-nourished. Alert. Conversant. Overall looks better today than when I saw her in January. Non toxic. She has a fairly widespread erythematous macular rash that does have some confluent areas of erythema on her trunk HENT: Head: Atraumatic. Right occipital incision is well apposed. No purulent drainage. There is a small amount of crusting on the upper 1/3 of the incision but that might be normal. There is about a 5-6 mm rim of erythema along the incision which could be appropriate for healing. No definite bright erythema or purulent drainage or any fluctuance or crepitance along the incision. There appear to be [address] along the suture line. No tenderness. No signs of redness spreading out from the incision Nose: Nose normal. Mouth/Throat: Oral mucosa is clear but mucous membranes are dry and tacky. There is whitish material on her tongue and white exudate on her pharynx. Tonsils also appear to be erythematous, perhaps slightly enlarged. Possible thrush. Could also be an exudate of pharyngitis. Phonation normal. No tri smus. Airway widely patent. Tonsils are symmetric. Uvula midline. Eyes: Conjunctivae normal. EOM normal. Pupils equal, round, and reactive to light. No scleral icterus. Neck: Normal range of motion. Neck supple. No tracheal deviation present. Cardiovascular: Normal rate, regular rhythm. No gallop. No friction rub. No murmur heard. Symmetric radial artery pulses Pulmonary/Chest: Effort normal. No stridor. No respiratory distress. No wheezes. No rales. No rhonchi . No tenderness. Abdominal: Soft. Bowel sounds normal. No distension. No mass. No HSM. No tenderness. No rebound. No guarding. No CVA tenderness. Musculoskeletal: RUE: Normal range of motion. No tenderness. No deformity LUE: Normal range of motion. No tenderness. No deformity RLE: Normal range of motion. No edema. No tenderness. No deformity LLE: Normal range of motion. No edema. No tenderness. No deformity Lymph: No cervical adenopathy. Neurological: Alert and oriented to person, place, and time. Normal strength. CN II-VII intact. No sensory deficit. GCS eye subscore is 4. GCS verbal subscore is 5. GCS motor subscore is 6. Normal coordination Skin: Skin is warm and dry. Erythematous macular not rash affecting her cheeks, anterior neck, chest, back, abdomen, both upper extremities and both thighs and lower extremities. Does not involve the palms and soles. No pustules, vesicles. No desquamation. No pallor. Normal capillary refill. Psychiatric: Normal mood. Normal affect. Const: Vital Signs, click to edit/add: Vital Signs - 24 hr 04/11/23 08:26 Temperature 98.9 F Pulse Rate [Right] 85 Respiratory Rate 18 Blood Pressure [Le ft Upper Arm] 104/68 Pulse Oximetry 97 Oxygen Delivery Me thod Room Air Course Vital Signs Vital signs: Initial Vital Signs Temperature 98.9 F 04/11/23 08:26 Temperature Source Oral 04/11/23 08:26 Pulse Rate 85 04/11/23 08:26 Pulse Rhythm Regular 04/11/23 08:26 Respiratory Rate 18 04/11/23 08:26 Blood Pressure 104/68 04/11/23 08:26 Blood Pressure Mean 80 04/11/23 08:26 Blood Pressure Position Sitting 04/11/23 08:26 Pulse Oximetry 97 04/11/23 08:26 Oxygen Delivery Method Room Air 04/11/23 08:26 Vital Signs Temperature 98.9 F 04/11/23 08:26 Pulse Rate 85 04/11/23 08:26 Respiratory Rate 18 04/11/23 08:26 Blood Pressure 104/68 04/11/23 08:26 Pulse Oximetry 97 04/11/23 08:26 Oxygen Delivery Method Room Air 04/11/23 08:26 Temperature 98.9 F 04/11/23 08:26 Pulse Rate 85 04/11/23 08:26 Respiratory Rate 18 04/11/23 08:26 Blood Pressure 104/68 04/11/23 08:26 Pulse Oximetry 97 04/11/23 08:26 Oxygen Delivery Method Room Air 04/11/23 08:26 Medications Administered Medications: Discontinued Medications Generic Name Dose Route Start Last Admin Trade Name Rosa PRN Reason Stop Dose Admin Sodium Chloride 1,000 mls @ 1,000 mls/hr 04/11/23 09:12 04/11/23 09:52 0.9 % Sodium Chloride 1000 Ml IV 04/11/23 10:11 1,000 mls/hr .Q1H SLIME Administration Prednisone 60 mg 04/11/23 10:49 04/11/23 11:05 Prednisone 20 Mg Tablet PO 04/11/23 10:50 60 mg ONCE ONE Administration Medical Decision Making MDM Narrative Medical decision making narrative: Pleasant 62-year-old female with a complex recent past history including previous history of breast cancer, recent diagnosis of right upper lobe lung cancer with diagnosis of cerebellar mass in January. She underwent resection of that mass and was placed on a course of steroids for vasogenic edema. She developed a postoperative incision/wound infection and required surgical debridement in March and again last week. First debridement occurred at [facility] and 2nd debris debridement occurred at [facility]. She has been on vancomycin for her postop infection. Cultures from 04/05 actually grew Pseudomonas so she had also had addition of cefepime while in the hospital last week. She has now developed an erythematous pruritic macular rash that is suspected be related vancomycin so that was stopped yesterday and she was switched to linezolid. Cefepime is still ongoing. Since yesterday she is on cefepime and linezolid. She has been running fevers up to 103 and has now also developed sore throat and throat swelling. Clinical exam does show evidence for exudates on her tongue and tonsils which could be pharyngitis or could be possible thrush. She has ongoing rash. No clear evidence for airway involvement or anaphylaxis or imminent airway threat. No signs of anaphylactic shock. COVID, influenza, RSV PCR negative. Strep PCR negative. Monospot negative. Labs do show mildly abnormal LFTs (AST 84, ALT 129) which are new compared to 04/03 (previously AST was 32, ALT 46). CB today shows elevated eosinophilic count, also increased from recent labs at [facility]. Eosinophilia, abnormal LFTs, Rash and other symptoms are suspicious for DRESS syndrome. Almost certainly related to vancomycin since she had been that on a couple of weeks prior to onset of the rash. Rash started before she was initiated on cefepime. She already had her vancomycin discontinued (last dose yesterday morning) by her ID team. Discussed with on-call ID, Dr. Coto. She recommends that we continue IV cefepime and hold linezolid for now. Most recent cultures grew Pseudomona, so continue cefipime. I start on oral steroids 1 milligram/kilogram. First dose of prednisone given here in the ER. Id recommends that we observe the patient for 24-40 hours to make sure things are not progressing or getting worse. D/w Hospitalist. Dr. Gonzalez. He agrees to admit here in [place] for monitoring. She also has signs of exudates on her tongue and pharynx. Suspect this might clinically be related to thrush. Unclear if this could be some sort of mucosal involvement from dressed. Lab Data Labs: Lab Results 04/11/23 04/11/23 Range/Units 09:38 09:47 WBC 6.33 (4.50-11.00) K/uL RBC 3.35 L (4.00-5.20) m/uL Hgb 9.8 L (12.0-16.0) gm/dL Hct 31.0 L (33.0-51.0) % MCV 93 (80-100) fL MCH 29 (26-34) pg MCHC 32 (32-36) gm/dL RDW Coeff of Tata 19.1 H (11.5-15.5) % Plt Count 401 (140-440) K/uL Neut % (Auto) 66.6 (42.0-72.0) % Lymph % (Auto) 8.8 L (20-44) % Day % (Auto) 9.6 (0.0-11.0) % Eos % (Auto) 14.7 H (0.0-7.0) % Baso % (Auto) 0.0 (0.0-3.0) % Neut # (Auto) 4.21 (1.7-7.0) K/uL Lymph # (Auto) 0.60 L (0.90-2.90) K/uL Day # (Auto) 0.60 (0.00-0.90) K/UL Eos # (Auto) 0.90 H (0.00-0.50) K/uL Baso # (Auto) 0.00 (0.00-0.30) K/uL Abs Immat Gran (auto) 0.02 (0.00-0.30) K/uL Imm/Tot Granulo (auto) 0.3 % Sodium 133 L (135-149) mmol/L Potassium 3.6 (3.6-5.1) mmol/L Chloride 100 (96-114) mmol/L Carbon Dioxide 22 (20-32) mmol/L Anion Gap 11 (7-15) mEq/L BUN 20 (7-30) mg/dL Creatinine 0.8 (0.5-1.5) mg/dL Estimated Creat Clear 61.86 Estimated GFR 84 ml/min Glucose 107 (60-115) mg/dL Calcium 8.9 (8.4-10.6) mg/dL Total Bilirubin 0.5 (0.1-1.5) mg/dL AST 84 H (12-35) U/L ALT 129 H (4-35) U/L Alkaline Phosphatase 92 (40-150) U/L Total Protein 6.4 (6.0-8.3) g/dL Albumin 3.5 (3.3-5.0) g/dL SARS-CoV-2 (PCR) Negative SARS-CoV-2 (Negative) Monoscreen Negative (Negative) Influenza Type A (PCR) Negative PCR FLU A (Negative) Influenza Type B (PCR) Negative PCR FLU B (Negative) RSV (PCR) Negative PCR RSV (Negative) Group A Strep DNA NOT DETECTED (Not Detectd) Imaging Data Chest x-ray: Attestation: I have reviewed the pertinent imaging results. My impression: Right upper lobe lung mass. No acute infiltrate Radiologist's impression: IMPRESSION: There is a 7 centimeter round mass at the apex of the right upper lobe. Discharge Plan Discharge Clinical Impression: DRESS syndrome, Pharyngitis Prescriptions: No Action atenolol 50 mg tablet 50 mg PO QDAY triamcinolone acetonide 0.1 % cream 1 applic topical BID Qty: 30 0RF Rx Instructions: Apply to affected area twice daily for up to two weeks. anastrozole 1 mg tablet 1 mg PO QDAY Qty: 90 3RF lisinopril 20 mg tablet 20 mg PO QDAY Patient Comments: TAKE 1 TABLET BY MOUTH EVERY DAY calcium carbonate-vitamin D3 600 mg-10 mcg (400 unit) tablet 1 tab PO QDAY Patient Comments: TAKE 1 TABLET BY MOUTH TWICE A DAY WITH MEALS multivitamin Tablet 1 tab PO QAM magnesium oxide 400 mg magnesium capsule 400 mg PO QDAY Follow Up/Referrals: Cordelia Duarte PA-C [Primary Care Provider] -
[2023-04-11 08:26] VITALS: BP 104/68; PULSE 85; RESP 18; TEMP 37.2; O2SAT 97; BMI 26.1
--- NOTE | 2023-04-11 09:42 | XR_ITS ---
Final Report Patient: ZAIRA GUERRERO Facility:?[facility] Patient ID:?[id number] Site Patient ID:?[id number] Site :?[id number] Study:?XRay Chest PA & LATERAL-04/11/2023 10:25:32 AM Ordering Physician:HUE Final Report: INDICATION: Cough, fever, rash TECHNIQUE: Chest two views PA and lateral COMPARISON: 11/14/2017 FINDINGS: Devices: Left IJ chest port distal tip superior cavoatrial junction. Lung volumes are good. There is a 7 centimeter round mass in the apex of the right upper lobe. No pleural effusion. No pneumothorax. Heart size is normal. Normal upper mediastinal contours. No airway deviation. Surgical clips right breast. IMPRESSION: There is a 7 centimeter round mass at the apex of the right upper lobe. Dictated by Miya Crawford MD @ 04/11/2023 10:28:46 AM (Electronic Signature)
[2023-04-11] MEDS: 0.9 % SODIUM CHLORIDE 1000 ml 1,000 ML IV (09:52)
[2023-04-11 10:02] LABS: Eosinophils Percent Auto 14.7 % (0.0-7.0); Hemoglobin* 9.8 gm/dL (12.0-16.0); Immature Granulocytes Abs Auto 0.02 K/uL (0.00-0.30); Immature Granulocytes Pct Auto 0.3 %; Lymphocytes Percent Auto 8.8 % (20-44); Mean Corpuscular HGB Conc 32 gm/dL (32-36); Mean Corpuscular Hemoglobin 29 pg (26-34); Mean Corpuscular Volume 93 fL (80-100); Monocytes Percent Auto 9.6 % (0.0-11.0); Neutrophils Absolute Auto 4.21 K/uL (1.7-7.0); Neutrophils Percent Auto 66.6 % (42.0-72.0); Platelet Count* 401 K/uL (140-440); RDW Coefficient of Variation % 19.1 % (11.5-15.5); Red Blood Count 3.35 m/uL (4.00-5.20); White Blood Count* 6.33 K/uL (4.50-11.00)
[2023-04-11 10:06] LABS: Slide Review Reflex No
[2023-04-11 10:14] LABS: Strep A DNA Probe* NOT DETECTED (Not Detectd)
[2023-04-11 10:17] LABS: Mono Screen* Negative (Negative)
[2023-04-11 10:19] LABS: Albumin* 3.5 g/dL (3.3-5.0); Chloride* 100 mmol/L (96-114); Sodium* 133 mmol/L (135-149)
[2023-04-11 10:20] LABS: Potassium* 3.6 mmol/L (3.6-5.1)
[2023-04-11 10:22] LABS: Alanine Aminotransferase* 129 U/L (4-35); Alkaline Phosphatase* 92 U/L (40-150); Anion Gap 11 mEq/L (7-15); Aspartate Amino Transferase* 84 U/L (12-35); Bilirubin Total* 0.5 mg/dL (0.1-1.5); Blood Urea Nitrogen* 20 mg/dL (7-30); Carbon Dioxide* 22 mmol/L (20-32); Creatinine* 0.8 mg/dL (0.5-1.5); Est. Creatinine Clearance* 61.86; Estimated Glomerular Filt Rate 84 ml/min; Glucose* 107 mg/dL (60-115); Total Protein* 6.4 g/dL (6.0-8.3)
[2023-04-11 10:23] LABS: Calcium* 8.9 mg/dL (8.4-10.6)
[2023-04-11 10:25] LABS: PCR FLU A Negative PCR FLU A (Negative); PCR FLU B Negative PCR FLU B (Negative); PCR RSV Negative PCR RSV (Negative); SARS PCR* Negative SARS-CoV-2 (Negative)
[2023-04-11] MEDS: predniSONE 20 MG TABLET 60 MG PO (11:05)
[2023-04-11 12:36] VITALS: BP 137/91; PULSE 97; RESP 20; TEMP 37.5; O2SAT 97; BMI 26.0
[2023-04-11 12:38] VITALS: BP 137/91; PULSE 97; RESP 20; TEMP 37.5; O2SAT 97
[2023-04-11] MEDS: CEFEPIME HCL 2 GM in 0.9 % SODIUM CHLORIDE Mini-bag 100 ML IVPB ×2 (14:41→21:27)
[2023-04-11] MEDS: LINEZOLID 600 MG TABLET PO ×2 (14:41→22:10)
[2023-04-11] MEDS: OXYCODONE 5 MG TABLET PO ×2 (14:41→22:09)
[2023-04-11] MEDS: diphenhydrAMINE 25 MG CAPSULE PO ×2 (15:03→19:07)
--- NOTE | 2023-04-11 15:19 | PC.NURSE ---
End of shift [id number]: Pt arrived to the unit at 1200 today. She is A&O and VSS. Low-grade fever with T-max 99.5 temporally. Pt is independent in her room with a steady gait. Last BM reported to be yesterday, 04/10/23. Left chest port accessed in ED for IV abx, receiving IV Cefepime q8H. Generalized rash located on bilat arms, bilat legs, chest, trunk, abdomen and entirety of her back. Pt reports pruritis and Benadryl has been ordered and given last at 1500. Posterior occipital incision is dry & healing, secured with sutures which are intact. Reports having 9/10 lower back pain that started x2 days ago, unaware if she moved wrong- PRN oxycodone ordered and given last at 1440. Pt c/o oropharynx pain x2 days, notable white patches on tongue- Magic mouthwash scheduled on APR. She reports she can only tolerate cold fluids by mouth- had pudding and ice cream for an afternoon snack. ?
[2023-04-11 15:45] VITALS: BP 117/77; PULSE 103; RESP 18; TEMP 38.8; O2SAT 96
--- NOTE | 2023-04-11 16:04 | P.IMHP_ITS ---
Hospitalist- H&P: [facility] History of Present Illness Date Seen: 04/11/23 Chief complaint: rash,sore throat,some trouble breathing Narrative: Areli Sanchez is a 62 year old female with history of lung cancer metastatic to brain, breast cancer, craniotomy for brain met and infection of cr aniotomy wound admitted to the hospital now with severe skin rash. December 2022: Diagnosed with lung cancer and referred for neoadjuvant immuno chemotherapy. Apparently received 1 round. January 2023: Found to have brain metastasis. Referred to [facility] where she underwent craniotomy to remove a right cerebellar hemisphere lesion. March 20 to 03/24/2023: Hospitalized at [facility] for infection of her craniotomy wound. Surgical I and D done. Cultures grew Staph epidermidis. She was discharged on long-term treatment with vancomycin at home. After this hospitalization she started to developed a mild diffuse skin rash. 04/04/2023 to 04/07/2023: Hospitalized at [facility] for infection of her craniotomy wound. Taken to the OR for I and D. repeat cultures apparently grew Pseudomonas. In addition to vancomycin she was on cefepime. She reports that the rash she had prior to this admission has gotten worse, especially in the past day. She has also developed a fever and sore throat. Other than her sore throat she has no respiratory symptoms. She reports a decreased appetite with some nausea but no vomiting or diarrhea. No urinary symptoms. She reports she is sleeping poorly. She is now size also complaining of some low back pain. She reports it is localized at the lower lumbar spine just to the left of midline. There is no trauma there. It is positional pain but constant. Yesterday contacted her infectious disease specialist at [place] who recommended switching from vancomycin to linezolid. Apparently they thought that she was having an adverse drug reaction to the vancomycin. She has been taking Benadryl for the itching of the skin. Past history includes diagnosis of breast cancer from 2 years ago. She remains on Arimidex for that. She has a port in place. She has apparently not had bacteremia or had to have her port removed. Review of Systems Narrative: Patient reports that she was doing fairly well and able to tolerate her rash which she has had for the last couple weeks until the rash is gotten bad in the last couple days. Along with this her left low back pain and her sore throat have been quite bothersome for her in the last couple days. [facility] Medical History (Updated 04/11/23 @ 16:51 by Javier Gonzalez MD) Lobular carcinoma in situ (LCIS) of right breast ?D05.01 - Lobular carcinoma in situ of right breast (ICD-10) HTN (hypertension) ?I10 - Essential (primary) hypertension (ICD-10) Tobacco use ?Z72.0 - Tobacco use (ICD-10) Invasive lobular carcinoma of breast in female ?C50.919 - Malignant neoplasm of unspecified site of unspecified female breast (ICD-10) Surgical History (Updated 04/11/23 @ 16:32 by Javier Gonzalez MD) Status post incision and drainage ?Z98.890 - Other specified postprocedural states (ICD-10) Status post vein stripping ?Z98.890 - Other specified postprocedural states (ICD-10) Hx of section ?Z98.891 - History of uterine scar from previous surgery (ICD-10) S/P appy ?Z90.49 - Acquired absence of other specified parts of digestive tract (ICD- 10) Status post right breast lumpectomy (~04/27/21) ?Z98.890 - Other specified postprocedural states (ICD-10) S/P radiation therapy (~05/2021) ?Z92.3 - Personal history of irradiation (ICD-10) Family History (Updated 04/11/23 @ 16:21 by Javier Gonzalez MD) Mother Breast cancer Father Cardiovascular disease Social History (Updated 04/11/23 @ 16:45 by Javier Gonzalez MD) Narrative: Lives in [place] with her . , Artemio, is healthcare power of senior attorney. Code status is full. Quit smoking January 2023. Does not use alcohol or recreational drugs What is your current living situation?: I presently have a place to live Problems where you live: no known problems Problems where you live details: na In the past 12 months, utilities in danger of being shut off: no In past 12 months, lack of transportation kept you from medical appts, meetings, work, or getting things needed for daily living: no In the past 12 mos, have been you worried that your food would run out before you had money to buy more?: never true In the past 12 mos, the food you bought just didn't last and you didn't have money to buy more?: never true Highest level of school completed/degree received: GED or equivalent Smoking Status: Former smoker What tobacco products do you use: cigarettes Smoking quit date/years: <= 15 years ago Do you use any of these nicotine containing products: None Second hand tobacco smoke exposure: No How often do you have a drink containing alcohol: never How often do you have six or more drinks on one occasion: Never AUDIT-C Alcohol total score: 0 Non-prescribed substance use: denies use Caffeine: Yes How often does anyone, including family, friends and others, physically hurt you : never How often does anyone, including family, friends and others, insult or talk down to you: never How often does anyone, including family, friends and others, threaten you with harm: never How often does anyone, including family, friends and others, scream or curse at you: never service: No Meds Home Medications and Allergies Home Medications Medication Instructions Recorded Confirmed Type calcium carbonate 600 mg-vitamin 1 tab PO BIDWM 02/18/22 04/11/23 History D3 10 mcg (400 unit) tablet magnesium oxide 400 mg PO HS 02/18/22 04/11/23 History multivitamin 1 tab PO QAM 02/18/22 04/11/23 History atenolol 50 mg tablet 50 mg PO DAILY 11/10/22 04/11/23 History albuterol sulfate 90 mcg/actuation 1 - 2 puff inhalation Q4H PRN 04/11/23 04/11/23 History aerosol inhaler dyspnea alteplase 2 mg intra-catheter 2 mg intra-catheter DAILY PRN 04/11/23 04/11/23 History solution (Cathflo Activase) anastrozole 1 mg tablet 1 mg PO DAILY breast cancer 04/11/23 04/11/23 History cefepime 2 gram solution for 2 g IV Q8H 04/11/23 04/11/23 History injection linezolid 600 mg tablet 600 mg PO BID 04/11/23 04/11/23 History lisinopril 10 mg tablet 10 mg PO DAILY 04/11/23 04/11/23 History ondansetron 4 mg disintegrating 4 mg PO Q8H PRN 04/11/23 04/11/23 History tablet oxycodone 5 mg tablet 5 - 10 mg PO Q6H PRN 04/11/23 04/11/23 History prochlorperazine maleate 10 mg 10 mg PO Q6H PRN nausea/vomiting 04/11/23 04/11/23 History tablet sennosides 8.6 mg-docusate sodium 1 tab-cap PO BID PRN 04/11/23 04/11/23 History 50 mg tablet (Senexon-S) Allergies Allergy/AdvReac Type Severity Reaction Status Date / Time vancomycin Allergy Severe DRESS Verified 04/11/23 11:13 syndrome flonase AdvReac Mild Rash Uncoded 02/18/22 08:37 Exam Narrative: Exam Narrative: She is alert and appears in no distress. She gives her own history. Eyes are normal. Sclerae nonicteric. No conjunctival injection. Oropharynx with dry mucous membranes. She appears to have no significant lesions on the hard palate but the soft palate and buccal mucosa with some small ulcers. The tongue with whitish exudate . Neck is supple without mass or adenopathy. Respirations are clear to auscultation without wheezing rales or rhonchi. Cardiovascular: S1, S2, regular rate and rhythm. No murmur gallop or rub. Abdomen: Bowel sounds active. Abdomen is soft without tenderness or mass. Extremities without edema she has intact peripheral pulses. Skin exam reveals a diffuse macular papular/morbilliform exanthem that is nearly confluent on her trunk/flanks /shoulders and upper arms and more widely scattered on her legs and lower arms. No vesicles or pustules Const: Vital Signs, click to edit/add: Vital Signs - 24 hr 04/11/23 08:26 04/11/23 12:36 04/11/23 12:36 Temperature 98.9 F 99.5 F Pulse Rate [Pulse Oximeter] 97 Pulse Rate [Right] 85 Respiratory Rate 18 20 20 Blood Pressure [Le ft Arm] 137/91 H Blood Pressure [Le ft Upper Arm] 104/68 Pulse Oximetry 97 97 97 Oxygen Delivery Me thod Room Air Room Air Room Air 04/11/23 12:38 Temperature 99.5 F Pulse Rate [Pulse Oximeter] 97 Pulse Rate [Right] Respiratory Rate 20 Blood Pressure [Le ft Arm] 137/91 H Blood Pressure [Le ft Upper Arm] Pulse Oximetry 97 Oxygen Delivery Me thod Room Air Documenting provider has reviewed patient's vital signs: yes Hospitalist - H&P: Result Labs Labs: Short CBC 04/11/23 Range/Units 09:47 WBC 6.33 (4.50-11.00) K/uL Hgb 9.8 L (12.0-16.0) gm/dL Hct 31.0 L (33.0-51.0) % Plt Count 401 (140-440) K/uL BMP 04/11/23 09:47 Sodium 133 L Potassium 3.6 Chloride 100 Carbon Dioxide 22 BUN 20 Creatinine 0.8 Glucose 107 Calcium 8.9 Liver Function 04/11/23 Range/Units 09:47 Total Bilirubin 0.5 (0.1-1.5) mg/dL AST 84 H (12-35) U/L ALT 129 H (4-35) U/L Alkaline Phosphatase 92 (40-150) U/L Albumin 3.5 (3.3-5.0) g/dL Assessment and Plan Assessment and plan (1) DRESS syndrome: Problem comment: Suspected secondary to vancomycin. Started relatively early after onset of vancomycin therapy. Initiate prednisone. Stop vancomycin. Status: Suspected (2) Pharyngitis: Problem comment: Appears to have mucositis and possibly thrush. Will treat topically for thrush and symptomatically with Magic mouthwash. Possibly part of her adverse drug reaction/DRESS Status: Acute (3) Fever: Problem comment: Suspected related to drug reaction/DRESS. Continue to monitor for other site of infection. Surgical wound appears to be healing fairly well with small area of mild erythema along the wound. Status: Acute (4) Surgical wound infection: Problem comment: I and D in mid March([place]) and end of March ([facility]) with cultures growing Staph epidermidis and Pseudomonas. On vancomycin for Staph epidermidis past 3 weeks and now switched to linezolid. On cefepime for last several days for Pseudomonas. Continue daptomycin and cefepime and monitoring of wound. Status: Acute Plan Patient is admitted to the hospital for ongoing evaluation management of suspected DRESS syndrome, wound infection and fever. Continue IV antibiotics, oral antibiotics, systemic corticosteroids and monitoring for complications. Total time spent today is 70 minutes, 50 minutes in coordination of care discussing with patient and other providers ongoing evaluation and management of DRESS, fever, wound infection
[2023-04-11] MEDS: ACETAMINOPHEN 500 MG TABLET 1000 MG PO (16:41)
[2023-04-11] MEDS: NYSTATIN 500,000 UNIT/5 ML 500000 UNIT SWISH/SWAL ×2 (17:35→21:21)
[2023-04-11 19:00] VITALS: BP 109/70; PULSE 85; RESP 18; TEMP 36.7; O2SAT 96
--- NOTE | 2023-04-11 19:08 | PC.NURSE ---
End of shift 3-7. Pt is up ab erasto in her room. Left chest port is patent. and needle needs to be changed tomorrow. rash located on bilat arms, bilat legs, chest, trunk, abdomen and entirety of her back. occipital incision is dry & healing,with sutures, intact. temp was 101.7 and she got 1000mg of tylenol Reports having 4/10 lower back pain oxycodone. white patches on tongue. Magic mouthwash given . ?
[2023-04-11] MEDS: MAGNESIUM OXIDE 400 MG TABLET PO (21:21)
[2023-04-11] MEDS: ENOXAPARIN 40 MG/0.4 ML INJ SUBCUT (21:22)
[2023-04-11 23:00] VITALS: BP 121/71; PULSE 84; RESP 18; TEMP 36.6; O2SAT 97
[2023-04-12] VITALS (8 sets, daily range): BP systolic 103–128; BP diastolic 70–83; PULSE 76–93; RESP 18; TEMP 36.8–38.3; O2SAT 94–98; BMI 26.4
--- NOTE | 2023-04-12 05:50 | PC.NURSE ---
Shift note: Pt is doing well. Had low grade fever at the start of the shift but temperature has been stable afterwards. Pt is independent in room. Itchy erythematous rash noted on skin, being managed with Benadryl. Itching has subside per pt. No discharge from the incision at the occiput. Alert and oriented. Pain has been at the minimal rated at 3.
[2023-04-12] MEDS: CEFEPIME HCL 2 GM in 0.9 % SODIUM CHLORIDE Mini-bag 100 ML IVPB ×3 (06:00→21:30)
[2023-04-12 06:29] LABS: Basophils Absolute Auto 0.01 K/uL (0.00-0.30); Basophils Percent Auto 0.2 % (0.0-3.0); Eosinophils Percent Auto 10.6 % (0.0-7.0); Hematocrit 27.8 % (33.0-51.0); Immature Granulocytes Abs Auto 0.02 K/uL (0.00-0.30); Immature Granulocytes Pct Auto 0.3 %; Lymphocytes Percent Auto 15.8 % (20-44); Mean Corpuscular HGB Conc 32 gm/dL (32-36); Mean Corpuscular Hemoglobin 30 pg (26-34); Mean Corpuscular Volume 91 fL (80-100); Monocytes Percent Auto 10.9 % (0.0-11.0); Neutrophils Absolute Auto 3.69 K/uL (1.7-7.0); Neutrophils Percent Auto 62.2 % (42.0-72.0); Platelet Count* 383 K/uL (140-440); Red Blood Count 3.04 m/uL (4.00-5.20); White Blood Count* 5.94 K/uL (4.50-11.00)
[2023-04-12 07:05] LABS: Chloride* 104 mmol/L (96-114); Potassium* 3.8 mmol/L (3.6-5.1); Sodium* 133 mmol/L (135-149)
[2023-04-12 07:07] LABS: Creatinine* 0.6 mg/dL (0.5-1.5); Est. Creatinine Clearance* 82.48; Estimated Glomerular Filt Rate 103 ml/min
[2023-04-12 07:08] LABS: Alanine Aminotransferase* 98 U/L (4-35); Alkaline Phosphatase* 80 U/L (40-150); Anion Gap 5 mEq/L (7-15); Aspartate Amino Transferase* 50 U/L (12-35); Bilirubin Direct* 0.2 mg/dL (0.0-0.5); Bilirubin Total* 0.3 mg/dL (0.1-1.5); Blood Urea Nitrogen* 19 mg/dL (7-30); Calcium* 8.6 mg/dL (8.4-10.6); Carbon Dioxide* 24 mmol/L (20-32); Glucose* 96 mg/dL (60-115); Total Protein* 5.7 g/dL (6.0-8.3)
[2023-04-12 07:11] LABS: C Reactive Protein* 6.8 mg/dL (0.5-1.0)
[2023-04-12 07:29] LABS: Slide Review Reflex No
[2023-04-12] MEDS: ACETAMINOPHEN 500 MG TABLET 1000 MG PO ×2 (07:41→15:10)
[2023-04-12 07:43] LABS: Lipase* 27 U/L (23-300)
[2023-04-12 07:54] LABS: Troponin I* < 0.01 ng/mL (0.01-0.04)
[2023-04-12] MEDS: atenoloL 50 MG TABLET PO (09:28)
[2023-04-12] MEDS: predniSONE 20 MG TABLET 60 MG PO (09:28)
[2023-04-12] MEDS: MULTIVITAMIN/MINERALS 1 TABLET 1 TAB PO (09:28)
[2023-04-12] MEDS: LINEZOLID 600 MG TABLET PO ×2 (09:29→21:26)
[2023-04-12] MEDS: lisinopriL 10 MG TABLET PO (09:29)
[2023-04-12] MEDS: NYSTATIN 500,000 UNIT/5 ML 500000 UNIT SWISH/SWAL ×4 (09:33→21:27)
--- NOTE | 2023-04-12 11:17 | PM.IMPN1 ---
Progress Note: A&P Assessment and plan (1) DRESS syndrome: Problem details: Suspected secondary to vancomycin. Started relatively early after onset of vancomycin therapy. Initiate prednisone. Stop vancomycin. Continued to have fever and rash is worse today. Oral mucosa perhaps mildly improved. Continue prednisone. Has follow-up with the [facility] on April 24. Possibly causing transaminitis. Possibly causing transaminitis. No obvious sign of renal or cardiac involvement Status: Suspected (2) Pharyngitis: Problem details: Appears to have mucositis and possibly thrush. Will treat topically for thrush and symptomatically with Magic mouthwash. Possibly part of her adverse drug reaction/DRESS. Modestly improved today. Status: Acute (3) Fever: Problem details: Suspected related to drug reaction/DRESS. Continue to monitor for other site of infection. Surgical wound appears to be healing fairly well with small area of mild erythema along the wound. Status: Acute (4) Surgical wound infection: Problem details: Wound is stable without evidence of drainage. Small area of erythema around the wound is stable. Tentative plan for sutures out next week with her surgeon. I and D in mid March([place]) and end of March ([facility]) with cultures growing Staph epidermidis and Pseudomonas. On vancomycin for Staph epidermidis past 3 weeks and now switched to linezolid. On cefepime for last several days for Pseudomonas. Continue daptomycin and cefepime and monitoring of wound. Status: Acute (5) Elevated liver transaminase level: Problem details: Probably due to DRESS. Improved today. Continue to trend. Status: Acute Plan Continue in-hospital pending some improvement. Continue to antibiotics for her wound infection. Outpatient follow-up with surgeon next week and Infectious Disease in 2 weeks when clinically improving. High-dose prednisone will be needed temporarily. Monitor for toxicity. Time Spent With Patient Total time spent: Total time spent today is 55 minutes, 45 minutes in coordination of care and discussing with patient and ongoing evaluation management of adverse drug reaction/DRESS. Subjective Date Seen: 04/12/23 Interval history: Areli Sanchez is a 62 year old female with history of lung cancer metastatic to brain, breast cancer, craniotomy for brain met and infection of craniotomy wound admitted to the hospital now with severe skin rash. December 2022: Diagnosed with lung cancer and referred for neoadjuvant immuno chemotherapy. Apparently received 1 round. January 2023: Found to have brain metastasis. Referred to [facility] where she underwent craniotomy to remove a right cerebellar hemisphere lesion. March 20 to 03/24/2023: Hospitalized at [facility] for infection of her craniotomy wound. Surgical I and D done. Cultures grew Staph epidermidis. She was discharged on long-term treatment with vancomycin at home. After this hospitalization she started to developed a mild diffuse skin rash. 04/04/2023 to 04/07/2023: Hospitalized at [facility] for infection of her craniotomy wound. Taken to the OR for I and D. repeat cultures apparently grew Pseudomonas. In addition to vancomycin she was on cefepime. She reports that the rash she had prior to this admission has gotten worse, especially in the past day. She has also developed a fever and sore throat. Other than her sore throat she has no respiratory symptoms. She reports a decreased appetite with some nausea but no vomiting or diarrhea. No urinary symptoms. She reports she is sleeping poorly. She is now size also complaining of some low back pain. She reports it is localized at the lower lumbar spine just to the left of midline. There is no trauma there. It is positional pain but constant. Yesterday contacted her infectious disease specialist at [place] who recommended switching from vancomycin to linezolid. Apparently they thought that she was having an adverse drug reaction to the vancomycin. She has been taking Benadryl for the itching of the skin. Day 1: Patient reports she has been able to eat to though still poor appetite. She has a sore mouth but she thinks it might be a little better. She continues to have fevers. Her skin continues to be quite itchy. Her back pain is a little better today. No abdominal pain or chest pain. No shortness of breath. No discomfort in her occipital and neck incision. Exam Narrative: Exam Narrative: She is alert and appears in no obvious distress. Eyes without conjunctival injection. Oropharynx appears modestly better. She does have some improvement in the exudate on her tongue. Still some posterior soft palate erythema and exudate. Neck is supple without mass or stridor. Respirations are clear to auscultation. Breathing is unlabored. Cardiovascular: S1, S2, regular rate and rhythm. Abdomen: Bowel sounds active. Abdomen is soft without tenderness or mass. Extremities without edema. Skin exam today shows the morbilliform rash she had yesterday is now confluent almost everywhere except her face and her feet. No blistering or ulcerations. She also appears to have some edema in her face. Const: Vital Signs, click to edit/add: Vital Signs - 24 hr 04/11/23 12:36 04/11/23 12:36 04/11/23 12:38 Temperature 99.5 F 99.5 F Pulse Rate [Pulse Oximeter] 97 97 Respiratory Rate 20 20 20 Blood Pressure [Le ft Arm] 137/91 H 137/91 H Pulse Oximetry 97 97 97 Oxygen Delivery Me thod Room Air Room Air Room Air 04/11/23 15:45 04/11/23 15:45 04/11/23 19:00 Temperature 101.8 F H 98.1 F Pulse Rate [Pulse Oximeter] 103 H 103 H 85 Respiratory Rate 18 18 18 Blood Pressure [Le ft Arm] 117/77 109/70 Pulse Oximetry 96 96 Oxygen Delivery Fl thod Room Air Room Air 04/11/23 23:00 04/12/23 03:00 04/12/23 07:41 Temperature 98 F 98.7 F 100.9 F H Pulse Rate [Pulse Oximeter] 84 93 Respiratory Rate 18 18 Blood Pressure [Le ft Arm] 121/71 121/70 Pulse Oximetry 97 94 Oxygen Delivery Fl thod Room Air Room Air 04/12/23 07:45 04/12/23 07:45 Temperature 100.9 F H Pulse Rate [Pulse Oximeter] 93 93 Respiratory Rate 18 18 Blood Pressure [Le ft Arm] 124/77 Pulse Oximetry 96 Oxygen Delivery Me thod Room Air Documenting provider has reviewed patient's vital signs: yes Labs Labs: Laboratory Results - last 24 hr 04/12/23 04/12/23 06:02 07:02 WBC 5.94 RBC 3.04 L Hgb 9.0 L Hct 27.8 L MCV 91 MCH 30 MCHC 32 RDW Coeff of [place] 19.0 H Plt Count 383 Neut % (Auto) 62.2 Lymph % (Auto) 15.8 L [place] % (Auto) 10.9 Eos % (Auto) 10.6 H Baso % (Auto) 0.2 Neut # (Auto) 3.69 Lymph # (Auto) 0.90 [place] # (Auto) 0.60 Eos # (Auto) 0.60 H Baso # (Auto) 0.01 Abs Immat Gran (auto) 0.02 Imm/Tot Granulo (auto) 0.3 Sodium 133 L Potassium 3.8 Chloride 104 Carbon Dioxide 24 Anion Gap 5 L BUN 19 Creatinine 0.6 Estimated Creat Clear 82.48 Estimated GFR 103 Glucose 96 Calcium 8.6 Total Bilirubin 0.3 Direct Bilirubin 0.2 AST 50 H ALT 98 H Alkaline Phosphatase 80 Troponin I < 0.01 L C-Reactive Protein 6.8 H Total Protein 5.7 L Albumin 3.0 L Lipase 27 Lab Acknowledgement Test Added
[2023-04-12] MEDS: OXYCODONE 5 MG TABLET PO ×2 (11:24→18:59)
[2023-04-12] MEDS: EMOLLIENT BASE CREAM 1 APPLIC TOPICAL (13:58)
[2023-04-12] MEDS: diphenhydrAMINE 25 MG CAPSULE PO ×2 (13:59→18:20)
--- NOTE | 2023-04-12 16:12 | PC.NURSE ---
End of shift. Pt has been very pleasant. back pain and she got po oxycodone. Pt is up ab erasto in her room. Left chest port is patent. and needle was changed today.. flushed well. rash located on bilat arms, bilat legs, chest, trunk, abdomen and entirety of her back. she said it was better today less itchy but she notes her face adn neck where more swollen today and MD was updated. occipital incision is dry & healing,with sutures, intact. temp was 100.9 and she got po Tylenol white patches on tongue. Magic mouthwash given. she is drinking and voiding./ UA is needed. she was up walking in the halls. she got mt cream for her rash. fluids are TKO ?
[2023-04-12] MEDS: DIPHEN/LIDO/ALUM/MAG/SIMETH 5 ML SUSPENSION MUCOUS MEM (17:01)
[2023-04-12 17:41] LABS: Appearance Urine Slightly Cloudy (Clear); Bilirubin Urine Negative (Negative); Blood Urine Negative (Negative); Color Urine Amber (Yellow); Glucose Urine Negative (Negative); Ketones Urine Trace (Negative); Leukocyte Esterase Urine Negative (Negative); Nitrite Urine Negative (Negative); Protein Urine 2+ (Negative); Urobilinogen Urine 0.2 (0.2-1.0); pH Urine 6.5 (5.0-8.5)
[2023-04-12 17:49] LABS: Bacteria Urine Few; RBC Urine 0-2 (0-2); Squamous Epithelial Cell Urine Few (None-Few)
[2023-04-12 17:50] LABS: Fine Granular Casts Urine Few
--- NOTE | 2023-04-12 18:49 | PC.NURSE ---
End of Shift: Patient pleasant and cooperative. Patient vitally stable, lungs clear, BS WNL, IV running TKO. Patient independent in room. Patient requested tylenol for headache and Benadryl for skin itchiness. Rash all over patient body, trunk and extremities. Occipital incision C/D/I.
[2023-04-12] MEDS: MAGNESIUM OXIDE 400 MG TABLET PO (21:26)
[2023-04-12] MEDS: ENOXAPARIN 40 MG/0.4 ML INJ SUBCUT ×2 (21:26→21:28)
[2023-04-13] MEDS: CEFEPIME HCL 2 GM in 0.9 % SODIUM CHLORIDE Mini-bag 100 ML IVPB (05:24)
[2023-04-13 06:18] LABS: Basophils Absolute Auto 0.01 K/uL (0.00-0.30); Basophils Percent Auto 0.1 % (0.0-3.0); Eosinophils Percent Auto 11.3 % (0.0-7.0); Hematocrit 27.2 % (33.0-51.0); Hemoglobin* 8.8 gm/dL (12.0-16.0); Immature Granulocytes Abs Auto 0.02 K/uL (0.00-0.30); Immature Granulocytes Pct Auto 0.2 %; Lymphocytes Percent Auto 12.3 % (20-44); Mean Corpuscular HGB Conc 32 gm/dL (32-36); Mean Corpuscular Hemoglobin 30 pg (26-34); Mean Corpuscular Volume 92 fL (80-100); Monocytes Percent Auto 12.2 % (0.0-11.0); Neutrophils Absolute Auto 5.55 K/uL (1.7-7.0); Neutrophils Percent Auto 63.9 % (42.0-72.0); Platelet Count* 402 K/uL (140-440); RDW Coefficient of Variation % 19.4 % (11.5-15.5); Red Blood Count 2.96 m/uL (4.00-5.20); White Blood Count* 8.69 K/uL (4.50-11.00)
[2023-04-13 06:36] LABS: Slide Review Reflex No
[2023-04-13 06:45] LABS: Albumin* 2.8 g/dL (3.3-5.0); Chloride* 102 mmol/L (96-114)
[2023-04-13 06:46] LABS: Potassium* 3.9 mmol/L (3.6-5.1); Sodium* 127 mmol/L (135-149)
[2023-04-13 06:48] LABS: Creatinine* 0.7 mg/dL (0.5-1.5); Estimated Glomerular Filt Rate 99 ml/min
[2023-04-13 06:49] LABS: Alanine Aminotransferase* 83 U/L (4-35); Alkaline Phosphatase* 76 U/L (40-150); Anion Gap 4 mEq/L (7-15); Aspartate Amino Transferase* 51 U/L (12-35); Blood Urea Nitrogen* 20 mg/dL (7-30); Calcium* 8.1 mg/dL (8.4-10.6); Carbon Dioxide* 21 mmol/L (20-32); Glucose* 93 mg/dL (60-115); Total Protein* 5.2 g/dL (6.0-8.3)
[2023-04-13 06:52] LABS: C Reactive Protein* 4.6 mg/dL (0.5-1.0)
[2023-04-13 07:00] VITALS: BP 113/71; PULSE 101; RESP 20; TEMP 38; O2SAT 95
--- NOTE | 2023-04-13 07:06 | PC.NURSE ---
Shift note: Pt has been sleeping well tonight. Refused 0300 vital signs. Alert and oriented. no fever recorded. Incision site at the occiput appeared clean and dry. Pt continue to have the itchy erythematous rash.
[2023-04-13 07:28] LABS: Bilirubin Total* 0.3 mg/dL (0.1-1.5)
[2023-04-13] MEDS: LINEZOLID 600 MG TABLET PO (07:59)
[2023-04-13] MEDS: atenoloL 50 MG TABLET PO (07:59)
[2023-04-13] MEDS: predniSONE 20 MG TABLET 60 MG PO (07:59)
[2023-04-13] MEDS: SODIUM CHLORIDE 0.9 % (FLUSH) 10 ML SYRINGE 5 ML IVF (08:00)
[2023-04-13] MEDS: MULTIVITAMIN/MINERALS 1 TABLET 1 TAB PO (08:00)
[2023-04-13] MEDS: OXYCODONE 5 MG TABLET PO (08:00)
[2023-04-13] MEDS: lisinopriL 10 MG TABLET PO (08:00)
[2023-04-13] MEDS: NYSTATIN 500,000 UNIT/5 ML 500000 UNIT SWISH/SWAL (08:01)
[2023-04-13] MEDS: HEPARIN 500 UNIT/5 ML SYRINGE IVF (08:01)
[2023-04-13] MEDS: ACETAMINOPHEN 500 MG TABLET 1000 MG PO (08:09)
[2023-04-13 09:16] VITALS: TEMP 37.3
[2023-04-13 11:00] VITALS: BP 83/58; PULSE 74; RESP 16; TEMP 36.8; O2SAT 96
--- NOTE | 2023-04-13 11:19 | P.DS_ITS ---
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 Started about 2 weeks after onset of vancomycin therapy. Started before cefepime therapy began last week. Initiated prednisone. Stop vancomycin. On Linezolid. Probably causing transaminitis. No obvious sign of renal or cardiac involvement (2) Pharyngitis: Status: Acute Problem details: Appears to have mucositis and pharyngitis. Will treat topically for thrush and symptomatically with Magic mouthwash. Probably part of her adverse drug reaction/DRESS. Modestly improved today. (3) Fever: Status: Acute Problem details: Suspected related to drug reaction/DRESS. Continue to monitor for other site of infection. Surgical wound appears to be healing fairly well with small area of mild erythema along the wound. (4) Elevated liver transaminase level: Status: Acute Problem details: Probably due to DRESS. Improved today. Continue to trend. (5) Hyponatremia: Status: Acute Problem details: Probably due to excess free water. Moderate fluid intake and close follow up. (6) Surgical wound infection: Status: Acute Problem details: Wound is stable without evidence of drainage. Small area of erythema around the wound is stable. Tentative plan for sutures out next week with her surgeon. I and D in mid March([place]) and end of March ([facility]) with cultures growing Staph epidermidis and Pseudomonas. On vancomycin for Staph epidermidis past 3 weeks and now switched to linezolid. On cefepime for last several days for Pseudomonas. Continue daptomycin and cefepime and monitoring of wound. DS: Summary Hospital Course Hospital Course: Areli Sanchez is a 62 year old female with history of lung cancer metastatic to brain, breast cancer, craniotomy for brain met and infection of craniotomy wound admitted to the hospital now with severe skin rash. December 2022: Diagnosed with lung cancer and referred for neoadjuvant immuno chemotherapy. Apparently received 1 round. January 2023: Found to have brain metastasis. Referred to [facility] in [place] where she underwent craniotomy to remove a right cerebellar hemisphere lesion. March 20 to 03/24/2023: Hospitalized at [facility] in [place] for infection of her craniotomy wound. Surgical I and D done. Cultures grew Staph epidermidis. She was discharged on long-term treatment with vancomycin at home. After this hospitalization she developed a mild generalized itchy rash, probably just before admission to [facility] on 04/04/2023. 04/04/2023 to 04/07/2023: Hospitalized at [facility] for infection of her craniotomy wound. Taken to the OR for I and D. repeat cultures apparently grew Pseudomonas. In addition to vancomycin she was on cefepime. She reports that the rash she had prior to this admission has gotten worse, especially in the past day. She has also developed a fever and sore throat. Other than her sore throat she has no respiratory symptoms. She reports a decreased appetite with some nausea but no vomiting or diarrhea. No urinary symptoms. She reports she is sleeping poorly. She is now size also complaining of some low back pain. She reports it is localized at the lower lumbar spine just to the left of midline. There is no trauma there. It is positional pain but constant. Yesterday contacted her infectious disease specialist at [place] who recommended switching from vancomycin to linezolid. Apparently they thought that she was having an adverse drug reaction to the vancomycin. She has been taking Benadryl for the itching of the skin. She was treated with prednisone 60 mg daily during her hospital stay. Cefepime and linezolid were continued. Vancomycin discontinued. During the hospital stay she continued to have fever. Her generalized rash became much worse over the 1st day and is about the same today, the day of discharge. Still prominent itching. No pustules or blisters or exfoliation. Her mucositis and pharyngitis is better. She is tolerating p.o. food and fluid as a result. She reports she drink a lot a water last night and her sodium has dropped from 133-127 overnight. Her surgical incision has remained stable without evidence of swelling, increased erythema, pain, drainage. Her LFTs are modestly improved. No evidence of cardiac or renal involvement. She is anxious to go home. After discussion of risks and benefits she chooses to go home today with close outpatient follow-up. She was seen in clinic in 4 days for recheck of sodium/basic metabolic panel, CBC, LFTs and re-evaluation of her suspected DRESS. Return to the emergency department if getting worse. If better next week consider reducing prednisone from 60 mg daily to 40 mg daily. Expect slow improvement in symptoms over the next few weeks. She also has follow-up with Infectious Disease and her spine surgeon in 12 days, April 24 at [place]. Status at Discharge Functional status at discharge: independent ambulation Overall status at discharge: patient is progressing back to baseline Time Spent with Patient Time attestation: Total time spent providing and/or coordinating discharge services: 60 minutes Time spent: Greater than 30 minutes Exam Narrative: Exam Narrative: She is alert and appears in no distress. Generalized morbilliform rash with individual lesions around 5 mm in size but over most of her trunk and proximal extremities it is confluent erythema. Distal extremities and head have less involvement with erythematous macules and papules more widely scattered. No vesicles ulcers or pustules. No exfoliation. Her oropharynx has resolved erythema, ulcerations and exudate. Const: Vital Signs, click to edit/add: Vital Signs - 24 hr 04/12/23 11:30 04/12/23 15:07 04/12/23 19:00 Temperature 99.6 F 98.3 F Pulse Rate [Pulse Oximeter] 76 76 84 Respiratory Rate 18 18 18 Blood Pressure [Le ft Arm] 103/70 114/76 Pulse Oximetry 98 96 Oxygen Delivery Me thod Room Air Room Air 04/12/23 23:00 04/13/23 07:00 04/13/23 07:00 Temperature 99.2 F 100.4 F H Pulse Rate [Pulse Oximeter] 86 101 H 101 H Respiratory Rate 18 20 20 Blood Pressure [Le ft Arm] 128/83 113/71 Pulse Oximetry 97 95 Oxygen Delivery Me thod Room Air Room Air 04/13/23 09:16 Temperature 99.1 F Pulse Rate [Pulse Oximeter] Respiratory Rate Blood Pressure [Le ft Arm] Pulse Oximetry Oxygen Delivery Me thod Documenting provider has reviewed patient's vital signs: yes DS: Data Data Completed and Pending Labs on day of discharge: Labs from last 24 hours 04/13/23 04/12/23 06:00 17:30 WBC 8.69 RBC 2.96 L Hgb 8.8 L Hct 27.2 L MCV 92 MCH 30 MCHC 32 RDW Coeff of Tata 19.4 H Plt Count 402 Neut % (Auto) 63.9 Lymph % (Auto) 12.3 L [place] % (Auto) 12.2 H Eos % (Auto) 11.3 H Baso % (Auto) 0.1 Neut # (Auto) 5.55 Lymph # (Auto) 1.10 [place] # (Auto) 1.10 H Eos # (Auto) 1.00 H Baso # (Auto) 0.01 Abs Immat Gran (auto) 0.02 Imm/Tot Granulo (auto) 0.2 Sodium 127 L Potassium 3.9 Chloride 102 Carbon Dioxide 21 Anion Gap 4 L BUN 20 Creatinine 0.7 Estimated Creat Clear 70.70 Estimated GFR 99 Glucose 93 Calcium 8.1 L Total Bilirubin 0.3 Direct Bilirubin 0.0 AST 51 H ALT 83 H Alkaline Phosphatase 76 C-Reactive Protein 4.6 H Total Protein 5.2 L Albumin 2.8 L Urine Color Bernice A Urine Appearance Slightly Cloudy A Urine pH 6.5 Ur Specific [place] 1.020 Urine Protein 2+ A Urine Glucose (UA) Negative Urine Ketones Trace A Urine Blood Negative Urine Nitrite Negative Urine Bilirubin Negative Urine Urobilinogen 0.2 Ur Leukocyte Esterase Negative Urine RBC 0-2 Urine WBC 2-5 Ur Squamous Epith Cells Few Urine Bacteria Few A Fine Granular Casts Few A Preliminary micro results at discharge 04/12/23 Unknown Urine Culture - Preliminary Urine,Clean Catch Culture in Progress Discharge Plan Discharge Disposition: Home, Self-Care Date of Admission: 04/11/23 13:40 Attending Provider on Discharge: Javier Gonzalez Primary Care Provider: Cordelia Duarte Condition: Stable Anticipated Discharge Date/Time: 04/13/23 12:30 Discharge Medications: New Magic Mouthwash (Lidocaine/Benadryl/Maalox) 120 mL suspension 5 ml PO Q4H PRNQty: 120 1RF Rx Instructions: Lidocaine Viscous 2 % mucosal solution 40 mL; Maalox 200 mg-200 mg-20 mg/5 mL oral suspension 40 mL; Benadryl 12.5 mg/5 mL oral elixir 40 mL; Per 120 mL SWISH AND SPIT. MAY COMPOUND IF FIRST PRODUCT IS NOT AVAILABLE. prednisone 20 mg tablet 60 mg PO DAILY Qty: 100 0RF Rx Instructions: Take 60 mg daily pending followup next week Continued atenolol 50 mg tablet 50 mg PO DAILY calcium carbonate-vitamin D3 600 mg-10 mcg (400 unit) tablet 1 tab PO BIDWM Patient Comments: TAKE 1 TABLET BY MOUTH TWICE A DAY WITH MEALS multivitamin Tablet 1 tab PO QAM magnesium oxide 400 mg magnesium capsule 400 mg PO HS albuterol sulfate 90 mcg/actuation HFA aerosol inhaler 1 - 2 puff INHALATION Q4H PRN (Reason: dyspnea) Cathflo Activase 2 mg recon soln 2 mg intra-catheter DAILY PRN Rx Instructions: leave dose in a single catheter lumen for 0.5 - 2 hrs cefepime 2 gram recon soln 2 g IV Q8H linezolid 600 mg tablet 600 mg PO BID lisinopril 10 mg tablet 10 mg PO DAILY ondansetron 4 mg tablet,disintegrating 4 mg PO Q8H PRN oxycodone 5 mg tablet 5 - 10 mg PO Q6H PRN prochlorperazine maleate 10 mg tablet 10 mg PO Q6H PRN (Reason: nausea/vomiting) sennosides-docusate sodium [Senexon-S] 8.6-50 mg tablet 1 tab-cap PO BID PRN anastrozole 1 mg tablet 1 mg PO DAILY Discharge Orders: Discharge Order (Routine); Ordered 04/13/23 Ordered By: Javier Gonzalez Activity Level: No Restrictions Discharge Diet: Regular Diet Detail: Due to low sodium concentration minimize water intake and increased salt intake Follow Up Appointments: Cordelia Duarte PA-C [Primary Care Provider] - (Follow-up in 4-5 days in clinic. Obtain labs: CBC with differential, basic metabolic panel, liver enzymes. If clinically improving begin taper of prednisone) [facility] Info Inst[facility]
[2023-04-13] MEDS: DIPHEN/LIDO/ALUM/MAG/SIMETH 5 ML SUSPENSION MUCOUS MEM (11:37)
[2023-04-13 12:28] LABS: Bilirubin Direct* 0.3 mg/dL (0.0-0.5)
[2023-04-13 12:46] LABS: Sodium* 127 mmol/L (135-149)
--- NOTE | 2023-04-13 14:00 | PC.NURSE ---
Nursing discharge note [id number]: Pt is A&O and VSS with exception to low-grade fever. T-max 100.4 this morning. Gave PRN Tylenol @ 0800 and fever resolved back to 98.2. Pt c/o intermittent low back pain, gave PRN oxycodone @ 0800 with adequate relief. Pt ambulates independently in her room with no gait issues. Denies any nausea or dyspnea. Pt reports having x2 large BM?s today with adequate U/O. Generalized rash still present but pruritis improving. Occipital incision dry & intact with sutures; minimal redness around incision. Oral thrush improving significantly- white plaques are completely resolved. PRN magic mouthwash given x1 dose @ 1135 prior to eating lunch. Pt still ate only 25% of food but reports she?s had better intake than previously. Pt discharged home with her via ambulatory at 1400. ?
--- NOTE | 2023-04-14 14:36 | PC.NURSE ---
Received a fax from patient's pharmacy stating they couldn't fill her magic mouthwash. Dr. Gonzalez was not here ask Dr. Guillen about this and she had me reach out to the patient to see if she wanted it sent to another pharmacy. Patient states she was sent home with some from the hospital and that she is ok with what she had.
== END 2023-04-13 14:00 | disposition home or self-care (01) | DRG 663 ==
LOC: ED 12:05 → MEDSURG 12:08
PROVIDERS: Admitting Provider Family Medicine; Emergency Provider Emergency Medicine; PCP Physician Assistant Medical; Visit Provider Family Medicine
DX: D72.12 Drug rash with eosinophilia and systemic symptoms syndrome (principal); T36.8X5A Adverse effect of other systemic antibiotics, initial encounter; Y92.239 Unspecified place in hospital as the place of occurrence of the external cause; C34.11 Malignant neoplasm of upper lobe, right bronchus or lung; C79.31 Secondary malignant neoplasm of brain; K12.30 Oral mucositis (ulcerative), unspecified; M54.59 Other low back pain; B37.0 Candidal stomatitis; T81.43XD Infection following a procedure, organ and space surgical site, subsequent encounter; B96.5 Pseudomonas (aeruginosa) (mallei) (pseudomallei) as the cause of diseases classified elsewhere; B95.7 Other staphylococcus as the cause of diseases classified elsewhere; R50.2 Drug induced fever; J02.9 Acute pharyngitis, unspecified; E87.1 Hypo-osmolality and hyponatremia; R74.01 Elevation of levels of liver transaminase levels; I10 Essential (primary) hypertension; Z85.3 Personal history of malignant neoplasm of breast
CPT/HCPCS: 36415; 71046; 80048; 80053; 80076; 81001; 81003; 83690; 84295; 84484; 85025; 86140; 86308; 87086; 87631; 87651; 99284; A9153; A9270; J0692; J1642; J1650; J7030; J7512

== ENCOUNTER 2023-04-15 03:43 | Emergency (ER) | payer BC, SELFPAY ==
[2023-04-15] VITALS (20 sets, daily range): BP systolic 119–150; BP diastolic 84–89; PULSE 76–92; RESP 16–18; TEMP 37.8–37.9; O2SAT 89–95; BMI 24.0
--- NOTE | 2023-04-15 03:58 | ED_ITS ---
HPI - General Adult General Chief complaint: Extremity Pain/Injury, Lower Stated complaint: leg and calf pain, possible low sodium Time Seen by Provider: 04/15/23 03:49 History of Present Illness HPI narrative: Patient is 62-year-old woman discharge in last 2 days after an episode of dress syndrome. 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 She briefly was recently diagnosed with breast cancer metastatic to the brain. As result she had a craniotomy which was subsequently infected and placed on vancomycin. Dear hospitalization her [place] vancomycin was changed to linezolid. She had diffuse rash and itching as well as Eosinophilia. She was discharged home with the linezolid and prednisone but is brought in today night stating that the rash is much worse in lower extremities and she is having mental status changes which are new. She has had no focal neurologic defects no fevers no chills no nausea no vomiting. Patient is under the care of her who does most of the talking during today's exam. Related Data Home Medications Medication Instructions Recorded Confirmed calcium carbonate 600 mg-vitamin 1 tab PO BIDWM 02/18/22 04/11/23 D3 10 mcg (400 unit) tablet magnesium oxide 400 mg PO HS 02/18/22 04/11/23 multivitamin 1 tab PO QAM 02/18/22 04/11/23 atenolol 50 mg tablet 50 mg PO DAILY 11/10/22 04/11/23 albuterol sulfate 90 mcg/actuation 1 - 2 puff inhalation Q4H PRN 04/11/23 04/11/23 aerosol inhaler dyspnea alteplase 2 mg intra-catheter 2 mg intra-catheter DAILY PRN 04/11/23 04/11/23 solution (Cathflo Activase) anastrozole 1 mg tablet 1 mg PO DAILY breast cancer 04/11/23 04/11/23 cefepime 2 gram solution for 2 g IV Q8H 04/11/23 04/11/23 injection linezolid 600 mg tablet 600 mg PO BID 04/11/23 04/11/23 lisinopril 10 mg tablet 10 mg PO DAILY 04/11/23 04/11/23 ondansetron 4 mg disintegrating 4 mg PO Q8H PRN 04/11/23 04/11/23 tablet oxycodone 5 mg tablet 5 - 10 mg PO Q6H PRN 04/11/23 04/11/23 prochlorperazine maleate 10 mg 10 mg PO Q6H PRN nausea/vomiting 04/11/23 04/11/23 tablet sennosides 8.6 mg-docusate sodium 1 tab-cap PO BID PRN 04/11/23 04/11/23 50 mg tablet (Senexon-S) Previous Rx's Medication Instructions Recorded Magic Mouthwash 5 ml PO Q4H PRN #120 mL 04/13/23 (Lidocaine/Benadryl/Maalox) 120 mL suspension prednisone 20 mg tablet 60 mg (3 x 20 mg) PO DAILY #100 04/13/23 tabs Allergies Allergy/AdvReac Type Severity Reaction Status Date / Time vancomycin Allergy Severe DRESS Verified 04/11/23 11:13 syndrome flonase AdvReac Mild Rash Uncoded 02/18/22 08:37 Review of Systems Status of ROS: Reports: 6 or more systems reviewed and unremarkable except as noted in History and below [facility] Medical History Lobular carcinoma in situ (LCIS) of right breast ?D05.01 - Lobular carcinoma in situ of right breast (ICD-10) HTN (hypertension) ?I10 - Essential (primary) hypertension (ICD-10) Tobacco use ?Z72.0 - Tobacco use (ICD-10) Invasive lobular carcinoma of breast in female ?C50.919 - Malignant neoplasm of unspecified site of unspecified female breast (ICD-10) Surgical History Status post incision and drainage ?Z98.890 - Other specified postprocedural states (ICD-10) Status post vein stripping ?Z98.890 - Other specified postprocedural states (ICD-10) Hx of section ?Z98.891 - History of uterine scar from previous surgery (ICD-10) S/P appy ?Z90.49 - Acquired absence of other specified parts of digestive tract (ICD- 10) Status post right breast lumpectomy (~04/27/21) ?Z98.890 - Other specified postprocedural states (ICD-10) S/P radiation therapy (~05/2021) ?Z92.3 - Personal history of irradiation (ICD-10) Family History Mother Breast cancer Father Cardiovascular disease Social History Narrative: Lives in [place] with her . , Artemio, is healthcare power of contract attorney. Code status is full. Quit smoking January 2023. Does not use alcohol or recreational drugs What is your current living situation?: I presently have a place to live Problems where you live: no known problems Problems where you live details: [place] In the past 12 months, utilities in danger of being shut off: no In past 12 months, lack of transportation kept you from medical appts, meetings, work, or getting things needed for daily living: no In the past 12 mos, have been you worried that your food would run out before you had money to buy more?: never true In the past 12 mos, the food you bought just didn't last and you didn't have money to buy more?: never true Highest level of school completed/degree received: GED or equivalent Smoking Status: Former smoker What tobacco products do you use: cigarettes Smoking quit date/years: <= 15 years ago Do you use any of these nicotine containing products: None Second hand tobacco smoke exposure: No How often do you have a drink containing alcohol: never How often do you have six or more drinks on one occasion: Never AUDIT-C Alcohol total score: 0 Non-prescribed substance use: denies use Caffeine: Yes How often does anyone, including family, friends and others, physically hurt you : never How often does anyone, including family, friends and others, insult or talk down to you: never How often does anyone, including family, friends and others, threaten you with harm: never How often does anyone, including family, friends and others, scream or curse at you: never service: No Exam Narrative: Exam Narrative: EXAM GENERAL: Patient appears anxious EYES: No scleral icterus. THYROID: no thyroid nodules or thyromegaly. LYMPH: No supraclavicular or cervical lymphadenopathy. SKIN: Diffuse macular rash noted on the extremities into living stent torso. EXT: No dependent lower extremity pedal edema. HEART: Regular rate and rhythm with no murmurs, rubs, or gallops. LUNGS: Clear to auscultation bilaterally with no crackles or wheezes. ABD: Soft, non tender, non distended. PSYCH: Good eye contact, speech is not pressured. Neurologic cranial nerves 2-12 grossly intact no focal defects. Const: Vital Signs, click to edit/add: Vital Signs - 24 hr 04/15/23 03:54 Temperature 100.1 F H Pulse Rate [Pulse Oximeter] 76 Respiratory Rate 18 Blood Pressure [Le ft Upper Arm] 119/84 Pulse Oximetry 95 Oxygen Delivery Me thod Room Air Course Course ED Course: I did ask for a CBC CMP UA repeat CT of the head and will make further recommendations as is appropriate. Reevaluation(s) Reevaluation #1: Careful inspection of the occiput shows a good healing of previous craniotomy incision with no signs of infection. Medical record was carefully reviewed. Patient's states that under no circumstances he willing to take her back home. Initial labs and results show slight increase in white blood cell count. She does have continued elevation of transaminases. Blood cultures collected has slight fever noted. 100.1 Vital Signs Vital signs: Initial Vital Signs Temperature 100.1 F H 04/15/23 03:54 Temperature Source Temporal Artery Scan 04/15/23 03:54 Pulse Rate 76 04/15/23 03:54 Respiratory Rate 18 04/15/23 03:54 Blood Pressure 119/84 04/15/23 03:54 Blood Pressure Mean 95 04/15/23 03:54 Blood Pressure Position Supine 04/15/23 03:54 Pulse Oximetry 95 04/15/23 03:54 Oxygen Delivery Method Room Air 04/15/23 03:54 Vital Signs Temperature 100.1 F H 04/15/23 03:54 Pulse Rate 76 04/15/23 03:54 Respiratory Rate 18 04/15/23 03:54 Blood Pressure 119/84 04/15/23 03:54 Pulse Oximetry 95 04/15/23 03:54 Oxygen Delivery Method Room Air 04/15/23 03:54 Temperature 100.1 F H 04/15/23 03:54 Pulse Rate 76 04/15/23 03:54 Respiratory Rate 18 04/15/23 03:54 Blood Pressure 119/84 04/15/23 03:54 Pulse Oximetry 95 04/15/23 03:54 Oxygen Delivery Method Room Air 04/15/23 03:54 Medications Administered Medications: Generic Name Dose Route Start Last Admin Trade Name Rosa PRN Reason Stop Dose Admin Hydromorphone HCl 0.5 mg 04/15/23 04:55 04/15/23 04:59 Hydromorphone 0.5 Mg/0.5 Ml Inj IVP 04/15/23 04:56 0.5 mg ONCE ONE Administration Lorazepam 1 mg 04/15/23 04:22 04/15/23 04:29 Lorazepam 2 Mg/Ml Inj IVP 04/15/23 04:23 1 mg ONCE ONE Administration Medical Decision Making MDM Narrative Medical decision making narrative: This is certainly very confusing presentation with significant complexity. I did thoroughly review the records. I collected appropriate laboratory studies which were not significantly different than previous. Due to the patient's worsening symptoms and her mental status change I do think tertiary care is appropriate. I did control her symptoms with Ativan and Dilaudid. I did discuss the case with the hospitalist at [facility] in arrange for transfer. I also gave her 40 mg of IV Solu-Medrol in lieu of her oral steroid. I am still somewhat confused as to what the etiology for symptoms is but I do think she does have acute delirium, dress syndrome metastatic cancer and diffuse rash. Lab Data Labs: Lab Results 04/15/23 Range/Units 04:05 WBC 11.64 H (4.50-11.00) K/uL RBC 2.82 L (4.00-5.20) m/uL Hgb 8.4 L (12.0-16.0) gm/dL Hct 26.1 L (33.0-51.0) % MCV 93 (80-100) fL MCH 30 (26-34) pg MCHC 32 (32-36) gm/dL RDW Coeff of Tata 19.2 H (11.5-15.5) % Plt Count 382 (140-440) K/uL Neut % (Auto) 57.5 (42.0-72.0) % Lymph % (Auto) 21.7 (20-44) % [place] % (Auto) 12.5 H (0.0-11.0) % Eos % (Auto) 7.8 H (0.0-7.0) % Baso % (Auto) 0.1 (0.0-3.0) % Neut # (Auto) 6.70 (1.7-7.0) K/uL Lymph # (Auto) 2.50 (0.90-2.90) K/uL [place] # (Auto) 1.50 H (0.00-0.90) K/UL Eos # (Auto) 0.90 H (0.00-0.50) K/uL Baso # (Auto) 0.00 (0.00-0.30) K/uL Abs Immat Gran (auto) 0.00 (0.00-0.30) K/uL Imm/Tot Granulo (auto) 0.4 % Sodium 131 L (135-149) mmol/L Potassium 3.9 (3.6-5.1) mmol/L Chloride 100 (96-114) mmol/L Carbon Dioxide 25 (20-32) mmol/L Anion Gap 6 L (7-15) mEq/L BUN 24 (7-30) mg/dL Creatinine 0.6 (0.5-1.5) mg/dL Estimated Creat Clear 86.10 Estimated GFR 103 ml/min Glucose 96 (60-115) mg/dL Calcium 8.3 L (8.4-10.6) mg/dL Total Bilirubin 0.3 (0.1-1.5) mg/dL AST 64 H (12-35) U/L ALT 114 H (4-35) U/L Alkaline Phosphatase 72 (40-150) U/L Total Protein 5.3 L (6.0-8.3) g/dL Albumin 2.9 L (3.3-5.0) g/dL Discharge Plan Discharge Clinical Impression: Delirium Patient Disposition: Xfer Other Discharge Location: [facility] Condition: Stable Activity Level: Other Discharge Diet: Other Prescriptions: No Action atenolol 50 mg tablet 50 mg PO DAILY calcium carbonate-vitamin D3 600 mg-10 mcg (400 unit) tablet 1 tab PO BIDWM Patient Comments: TAKE 1 TABLET BY MOUTH TWICE A DAY WITH MEALS multivitamin Tablet 1 tab PO QAM magnesium oxide 400 mg magnesium capsule 400 mg PO HS albuterol sulfate 90 mcg/actuation HFA aerosol inhaler 1 - 2 puff INHALATION Q4H PRN (Reason: dyspnea) Cathflo Activase 2 mg recon soln 2 mg intra-catheter DAILY PRN Rx Instructions: leave dose in a single catheter lumen for 0.5 - 2 hrs cefepime 2 gram recon soln 2 g IV Q8H linezolid 600 mg tablet 600 mg PO BID lisinopril 10 mg tablet 10 mg PO DAILY ondansetron 4 mg tablet,disintegrating 4 mg PO Q8H PRN oxycodone 5 mg tablet 5 - 10 mg PO Q6H PRN prochlorperazine maleate 10 mg tablet 10 mg PO Q6H PRN (Reason: nausea/vomiting) sennosides-docusate sodium [Senexon-S] 8.6-50 mg tablet 1 tab-cap PO BID PRN anastrozole 1 mg tablet 1 mg PO DAILY Magic Mouthwash (Lidocaine/Benadryl/Maalox) 120 mL suspension 5 ml PO Q4H PRNQty: 120 1RF Rx Instructions: Lidocaine Viscous 2 % mucosal solution 40 mL; Maalox 200 mg-200 mg-20 mg/5 mL oral suspension 40 mL; Benadryl 12.5 mg/5 mL oral elixir 40 mL; Per 120 mL SWISH AND SPIT. MAY COMPOUND IF FIRST PRODUCT IS NOT AVAILABLE. prednisone 20 mg tablet 60 mg PO DAILY Qty: 100 0RF Rx Instructions: Take 60 mg daily pending followup next week Follow Up/Referrals: Cordelia Duarte PA-C [Primary Care Provider] - Stand Alone [facility]
--- NOTE | 2023-04-15 04:03 | CT_ITS ---
Patient: ZAIRA GUERRERO Facility:?[facility] Patient ID:?[id number] Site Patient [id number]:?[id number]. Site :?[id number] Study:?CT-Head without contrast-04/15/2023 4:35:38 AM Ordering Physician:Ivy Cosme Final Report: Indication: Confusion, altered mental status. Additional history includes lung cancer with right cerebellar mass. Technique: Noncontrast CT of head was performed. Comparison: 01/25/2023. Findings: Brain parenchyma: Interval postoperative changes following right occipital craniotomy and right cerebellar mass resection. There is decreased edema within the cerebellar hemisphere and resolution of the previously seen mass effect along the 4th ventricle. Evaluation for residual or new lesion is limited on noncontrast exam. Normal redd-white matter differentiation. No acute intraparenchymal hemorrhage. No mass effect or midline shift. Extra-axial spaces: No extra-axial collection. Ventricular system: Unremarkable for age. Paranasal sinuses and mastoid air cells: Clear. Orbits: Unremarkable. Bones: No calvarial fracture. See above for postoperative change. Impression: 1. Interval postoperative changes following right occipital craniotomy and right cerebellar mass resection. Decrease in right cerebellar edema and mass effect on the 4th ventricle. Please note that evaluation for recurrent or new lesion is limited on noncontrast CT. 2. No acute intracranial abnormality identified. Please note that all CT scans at this facility use dose modulation, iterative reconstruction, and/or weight-based dosing when appropriate to reduce radiation dose to as low as reasonably achievable. Dictated by Sheree Cabrera MD @ 04/15/2023 5:05:59 AM Signed by:?Sheree Cabrera MD @04/15/2023 5:05:59 AM (Electronic Signature)
[2023-04-15 04:12] LABS: Hematocrit 26.1 % (33.0-51.0); Hemoglobin* 8.4 gm/dL (12.0-16.0); Mean Corpuscular HGB Conc 32 gm/dL (32-36); Mean Corpuscular Hemoglobin 30 pg (26-34); Mean Corpuscular Volume 93 fL (80-100); Red Blood Count 2.82 m/uL (4.00-5.20); White Blood Count* 11.64 K/uL (4.50-11.00)
[2023-04-15 04:13] LABS: Basophils Percent Auto 0.1 % (0.0-3.0); Eosinophils Percent Auto 7.8 % (0.0-7.0); Immature Granulocytes Pct Auto 0.4 %; Lymphocytes Percent Auto 21.7 % (20-44); Monocytes Percent Auto 12.5 % (0.0-11.0); Neutrophils Percent Auto 57.5 % (42.0-72.0); Platelet Count* 382 K/uL (140-440); RDW Coefficient of Variation % 19.2 % (11.5-15.5); Slide Review Reflex No
[2023-04-15 04:25] LABS: Albumin* 2.9 g/dL (3.3-5.0); Chloride* 100 mmol/L (96-114); Sodium* 131 mmol/L (135-149)
[2023-04-15 04:26] LABS: Potassium* 3.9 mmol/L (3.6-5.1)
[2023-04-15 04:28] LABS: Alkaline Phosphatase* 72 U/L (40-150); Anion Gap 6 mEq/L (7-15); Aspartate Amino Transferase* 64 U/L (12-35); Bilirubin Total* 0.3 mg/dL (0.1-1.5); Blood Urea Nitrogen* 24 mg/dL (7-30); Carbon Dioxide* 25 mmol/L (20-32); Creatinine* 0.6 mg/dL (0.5-1.5); Estimated Glomerular Filt Rate 103 ml/min; Total Protein* 5.3 g/dL (6.0-8.3)
[2023-04-15 04:29] LABS: Alanine Aminotransferase* 114 U/L (4-35); Calcium* 8.3 mg/dL (8.4-10.6); Glucose* 96 mg/dL (60-115)
[2023-04-15] MEDS: LORazepam 2 MG/ML inj 1 MG IVP (04:29)
[2023-04-15] MEDS: HYDROmorphone 0.5 mg/0.5 ml inj IVP ×2 (04:59→07:40)
[2023-04-15] MEDS: METHYLPREDNISOLONE SOD SUCC 40 MG/ML IVP (06:19)
--- NOTE | 2023-04-15 07:40 | ED.NURSE ---
Patient was found restless and moaning dueing routine rounding. Orientated to self and place, when asked if she had pain she stated everywhere. MD ordered additional 0.5 dilaudid and this calmed patient well.
== END 2023-04-15 09:56 | disposition other institution (70) ==
PROVIDERS: Emergency Provider Internal Medicine; PCP Physician Assistant Medical
DX: D72.12 Drug rash with eosinophilia and systemic symptoms syndrome (principal)
CPT/HCPCS: 36415; 70450; 80053; 81003; 85025; 87040; 96374; 96375; 99284; J1170; J2060; J2920

== ENCOUNTER 2023-04-15 09:20 | Outpatient (CLI) | payer BC, SELFPAY | END 2023-04-15 09:21 | disposition home or self-care (01) | LOC: AMB 04-18 12:37 | PROVIDERS: PCP Physician Assistant Medical; Visit Provider Family Medicine | DX: R41.82 Altered mental status, unspecified (principal) | CPT/HCPCS: A0425; A0426 ==

== ENCOUNTER 2023-05-26 16:47 | Outpatient (CLI) | payer BC, SELFPAY | END 2023-05-26 16:48 | disposition home or self-care (01) | LOC: NFLDREF 05-29 06:43 | PROVIDERS: PCP Physician Assistant Medical; Referring Provider Physician Assistant Medical; Visit Provider Physician Assistant | DX: N39.0 Urinary tract infection, site not specified (principal) | CPT/HCPCS: 87086; 87186 ==

== ENCOUNTER 2023-07-31 16:17 | Outpatient (CLI) | payer BC, SELFPAY ==
--- NOTE | 2023-07-31 16:45 | CRLHL7_ITS ---
For Patients: As a result of the Century Cures Act, medical imaging exams and procedure reports are released immediately into your electronic medical record. You may view this report before your referring provider. If you have questions, please contact your health care provider. CT ANGIOGRAM HEAD DATE: 07/31/2023 CLINICAL HISTORY: Patient with brain aneurysm. TECHNIQUE: Standard helical CT image acquisition through the intracranial circulation following intravenous administration of contrast material with bolus tracking. 2D and 3D MIP images for post-processing were performed and interpreted on an independent workstation and 3D images were permanently archived. COMPARISON: CT 04/15/2023. 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 There is no proximal intracranial large vessel occlusion. The right internal carotid artery is normal. The right anterior cerebral artery and its branches are normal. The left internal carotid artery is normal. The left middle cerebral artery and its branches are normal. The left anterior cerebral artery and its branches are normal. The anterior communicating artery is well visualized and appears normal. The right vertebral artery and PICA are normal. The left vertebral artery and PICA are normal. The vertebral arteries are codominant. The basilar artery is patent and appears normal. The right posterior cerebral artery is normal. The left posterior cerebral artery is normal. 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 Please note that all CT scans at this facility use dose modulation, iterative reconstruction, and/or weight-based dosing when appropriate to reduce radiation dose to as low as reasonably achievable. Dictated by: Yue Chapa MD @ 08/02/2023 06:48:30 (Electronically Signed)
[2023-07-31 16:55] LABS: Creatinine* 0.7 mg/dL (0.5-1.5); Estimated Glomerular Filt Rate 99 ml/min
== END 2023-07-31 16:18 | disposition home or self-care (01) ==
LOC: CT 16:17
PROVIDERS: PCP Physician Assistant Medical; Visit Provider Radiology Diagnostic Radiology
DX: I67.1 Cerebral aneurysm, nonruptured (principal)
CPT/HCPCS: 36415; 70496; 82565; Q9967

== ENCOUNTER 2023-11-22 07:57 | Outpatient (CLI) | payer BC, SELFPAY ==
--- NOTE | 2023-11-22 08:00 | CRLHL7_ITS ---
For Patients: As a result of the Century Cures Act, medical imaging exams and procedure reports are released immediately into your electronic medical record. You may view this report before your referring provider. If you have questions, please contact your health care provider. DXA BONE MINERAL DENSITY STUDY Reason for exam: History of breast, lung, and brain cancer. Current height (in): 63. Weight (lb): 180. Menopause age: 48. Ethnicity: White. 1. Have you had a previous hip or vertebral fracture? No. 2. Have you had any fractures during your adult life which did not result from significant trauma (e.g., auto accident)? No. 3. Did either of your parents have a hip fracture? Yes. 4. Do you smoke? No. 5. Have you ever taken Glucocorticoids? No. 6. Do you have rheumatoid arthritis? No. 7. Do you have secondary osteoporosis? No. 8. Do you drink 3 or more alcoholic drinks per day? No. 9. Are you being treated for osteoporosis? No. 10. Have you ever taken any of the following medications: Actonel, Evista, Fosamax, Miacalcin, Reclast, Boniva, Forteo, HRT (i.e., estrogen/hormone therapy), Protelos, Prolia, Vitamin D, Calcium, other ??? please specify. ANSWER: Yes, vitamin D, HRT (i.e., estrogen/hormone therapy), and calcium. 11. Do you have any of the following medical conditions: Anorexia or bulimia, asthma or emphysema, end stage renal disease, hyperparathyroidism, any seizure disorders, cancer, inflammatory bowel diseases, hysterectomy, other ??? please specify. ANSWER: Yes, asthma or emphysema and cancer. 12. What was your maximum height (inches)? 64. 13. Do you perform weight bearing exercise regularly? No. 14. Do you regularly consume dairy products? Yes. 15. Do you drink caffeinated beverages? Yes. 16. At what age did your period start? 14. 17. Are you premenopausal? No. 18. How many full-term pregnancies have you had? 2. 19. Have you ever missed your period for more than 6 months in a row (not including or menopause)? No. TECHNIQUE: Bone mineral density study was performed using the [employer] Or[employer]. FINDINGS: The results of the study expressed as bone mineral density (BMD) are as follows: Lumbar spine L1 to L4: BMD: 0.983 g/cm2. T-score: -0.6. Z-score: 0.9 Neck Left: BMD: 0.731 g/cm2. T-score: -1.1. Z-score: 0.3 Right: BMD: 0.749 g/cm2. T-score: -0.9. Z-score: 0.4 Total Left: BMD: 0.902 g/cm2. T-score: -0.3. Z-score: 0.7 Right: BMD: 0.888 g/cm2. T-score: -0.4. Z-score: 0.5 IMPRESSION: Osteopenia. *Comparison exams done prior to 07/2019 were performed on different unit, [employer]. COMPARISON: Compared with scan of 10/13/2021, the bone mineral density has increased by 2.7 percent at the spine and increased by 3.5 percent at the hip. FRAX 10-year Fracture Risk Major Osteoporotic Fracture: 14% Hip Fracture: 0.5% Reported Risk Factors: [place] () Neck BMD=0.731, BMI=31.9, parental fracture. YOLANDA ADAMS M.D. Transcribed: 3:08 p.m. [email or web address] jj/Dictated by: Yolanda Adams MD @ 11/24/2023 9:46:00 AM (Electronically Signed)
== END 2023-11-22 07:58 | disposition home or self-care (01) ==
LOC: RAD 07:58
PROVIDERS: PCP Physician Assistant Medical; Visit Provider Internal Medicine Hematology & Oncology
DX: C34.91 Malignant neoplasm of unspecified part of right bronchus or lung (principal); M85.89 Other specified disorders of bone density and structure, multiple sites
CPT/HCPCS: 77080